=== PATIENT | female | born 1990 | race Caucasian/White ===

== ENCOUNTER 2017-10-17 05:30 | Inpatient (IN) | payer BC ==
[2017-10-17] MEDS ORDERED: Misoprostol 50 MCG (1/2 of 100 MCG) Tab VAG ONE (08:00)
[2017-10-17] MEDS ORDERED: fentaNYL 100 MCG/2 ML SDV IVPUSH PRN (08:14)
[2017-10-17] MEDS ORDERED: Ondansetron 4 MG Tab.DIS PO PRN (08:14)
[2017-10-17] MEDS ORDERED: Sodium Chloride 0.9% 10 ML Syringe FLUSH PRN (08:14)
[2017-10-17] MEDS ORDERED: Acetaminophen 325 MG Tab PO PRN (08:14)
--- NOTE | 2017-10-17 08:28 | PCM.LDHP ---
L&D History of Present Illness - General Date of Service: 10/17/17 (induction) Admit Problem/Dx: Patient Status Order with Admit Dx/Problem 10/17/17 08:14 Patient Status [ADT] Routine Admission Diagnosis/Problem Admission Diagnosis/Problem - planned Source of Information: Patient History Limitations: Reports: No Limitations - History of Present Illness Introduction:: This 27 year old G1 who is 40 4/7 weeks gestation. She presents today for induction of labor. She has been chiara since Tuesday, mild and about every 4-7 minutes. No leaking of fluid. Adequate care, healthy non smoker Labs: ABO O pos HIV neg Rubella Immune GBS pos Timing/Duration: Reports: minutes: (4-7) Location, : Reports: Abdomen Quality: Reports: Pressure Severity: Mild Improves with: Reports: None Worsens with: Reports: None - Related Data Allergies/Adverse Reactions: Allergies Allergy/AdvReac Type Severity Reaction Status Date / Time Amoxicillin Allergy Rash Uncoded 10/17/17 06:25 cephalexin Allergy Rash Uncoded 10/17/17 06:25 Home Medications: Home Meds [id number]/FA/Omega3/Dha/Fish Oil [ Gummies] 1 tab DAILY 10/17/17 [History] Past Medical History HEENT History: Reports: Allergic Rhinitis Genitourinary History: Reports: STD Other Genitourinary History: HPV 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: : 1 Para: 0 LMP (Approximate): (CHRISTELLE 10/13/17) Neurological History: Reports: Migraines, Other (See Below) Other Neuro History: Hx of migraines none in a while Oncologic (Cancer) History: Reports: Cervix 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 - Infectious Disease History Infectious Disease History: Reports: Chicken Pox - Past Surgical History Female Surgical History: Reports: None Social & Family History - Family History Family Medical History: Noncontributory - Tobacco Use Smoking Status *Q: Former Smoker Years of Tobacco use: 3 Packs/Tins Daily: 0.1 Used Tobacco, but Quit: Yes Month/Year Tobacco Last Used: 47 Second Hand Smoke Exposure: No - Caffeine Use Caffeine Use: Reports: Coffee Caffeine Use Comment: 1 cup/day - Recreational Drug Use Recreational Drug Use: No H&P Review of Systems - Review of Systems: Review Of Systems: See Below General: Reports: No Symptoms HEENT: Reports: No Symptoms Pulmonary: Reports: No Symptoms Cardiovascular: Reports: No Symptoms Gastrointestinal: Reports: No Symptoms Genitourinary: Reports: No Symptoms Musculoskeletal: Reports: No Symptoms Skin: Reports: No Symptoms Psychiatric: Reports: No Symptoms Neurological: Reports: No Symptoms Hematologic/Lymphatic: Reports: No Symptoms Immunologic: Reports: No Symptoms L&D Exam - Exam Exam: See Below - Vital Signs Vital Signs: Last Vital Signs Temp 96.7 F 10/17/17 05:43 Pulse 83 10/17/17 05:43 Resp 18 10/17/17 05:43 BP 124/72 10/17/17 05:43 Pulse Ox 97 10/17/17 05:43 Weight: 246 lb 11.2 oz - OB Specific Contraction Intensity: Irritability Movement: Active Heart Tones: Present Heart Tones per Min: 130 Heart Rate (FHR) Variability: Moderate (6-25 bmp) Presentation: Vertex Estimated Weight: 8 pounds - Lafleur Score Lafleur Score Cervix Position: Posterior Lafleur Score Consistency: Soft Lafleur Score Effacement: 51-70% Lafleur Score Dilation: 1-2 cm Lafleur Score Infant's Station: -2 Lafleur Score Total: 6 - Exam General: Alert, Oriented HEENT: PERRLA, Conjunctiva Clear, Mucosa Moist & [place], Pupils Equal Neck: Supple, Trachea Midline Lungs: Clear to Auscultation, Normal Respiratory Effort Cardiovascular: Regular Rate, Regular Rhythm GI/Abdominal Exam: Soft, No Mass, Pelvis Stable Rectal Exam: Normal Rectal Tone Genitourinary: Cervical dilitation, Enlarged uterus Back Exam: Normal Inspection, Full Range of Motion Extremities: Normal Inspection, Normal Range of Motion, Non-Tender, No Pedal Edema, Normal Capillary Refill Skin: Warm, Dry, Intact Neurological: Cranial Nerves Intact, Reflexes Equal Bilateral Psychiatric: Alert, Normal Affect, Normal Mood - Patient Data Lab Results Last 24 hrs: Laboratory Results - last 24 hr 10/17/17 10/17/17 10/17/17 Range/Units 05:43 05:43 05:45 WBC 16.6 H (4.5-11.0) K/uL RBC 4.69 (3.30-5.50) M/uL Hgb 13.7 (12.0-15.0) g/dL Hct 39.5 (36.0-48.0) % MCV 84 (80-98) fL MCH 29 (27-31) pg MCHC 35 (32-36) % Plt Count 378 (150-400) K/uL Neut % (Auto) 72 H (36-66) % Lymph % (Auto) 20 L (24-44) % [place] % (Auto) 7 H (2-6) % Eos % (Auto) 1 L (2-4) % Baso % (Auto) 0 (0-1) % Urine Color Yellow Urine Appearance Clear Urine pH 7.0 (4.5-8.0) Ur Specific [place] 1.010 (1.008-1.030) Urine Protein Negative (NEGATIVE) mg/dL Urine Glucose (UA) Normal (NEGATIVE) mg/dL Urine Ketones Negative (NEGATIVE) mg/dL Urine Occult Blood Negative (NEGATIVE) Urine Nitrite Negative (NEGATIVE) Urine Bilirubin Negative (NEGATIVE) Urine Urobilinogen Normal (NORMAL) mg/dL Ur Leukocyte Esterase Moderate (NEGATIVE) Urine RBC 0-5 (0-5) Urine WBC 10-20 H (0-5) Ur Epithelial Cells Few Amorphous Sediment Moderate Urine Bacteria Many Urine Mucus Not seen Membrane Rupture (NEGATIVE) Urine Opiates Screen Negative (NEGATIVE) Ur Oxycodone Screen Negative (NEGATIVE) Urine Methadone Screen Negative (NEGATIVE) Ur Propoxyphene Screen Negative (NEGATIVE) Ur Barbiturates Screen Negative (NEGATIVE) Ur Tricyclics Screen Negative (NEGATIVE) Ur Phencyclidine Scrn Negative (NEGATIVE) Ur Amphetamine Screen Negative (NEGATIVE) U Methamphetamines Scrn Negative (NEGATIVE) Urine MDMA Screen Negative (NEGATIVE) U Benzodiazepines Scrn Negative (NEGATIVE) U Cocaine Metab Screen Negative (NEGATIVE) U Marijuana (THC) Screen Negative (NEGATIVE) 10/17/17 Range/Units 06:25 WBC (4.5-11.0) K/uL RBC (3.30-5.50) M/uL Hgb (12.0-15.0) g/dL Hct (36.0-48.0) % MCV (80-98) fL MCH (27-31) pg MCHC (32-36) % Plt Count (150-400) K/uL Neut % (Auto) (36-66) % Lymph % (Auto) (24-44) % [place] % (Auto) (2-6) % Eos % (Auto) (2-4) % Baso % (Auto) (0-1) % Urine Color Urine Appearance Urine pH (4.5-8.0) Ur Specific [place] (1.008-1.030) Urine Protein (NEGATIVE) mg/dL Urine Glucose (UA) (NEGATIVE) mg/dL Urine Ketones (NEGATIVE) mg/dL Urine Occult Blood (NEGATIVE) Urine Nitrite (NEGATIVE) Urine Bilirubin (NEGATIVE) Urine Urobilinogen (NORMAL) mg/dL Ur Leukocyte Esterase (NEGATIVE) Urine RBC (0-5) Urine WBC (0-5) Ur Epithelial Cells Amorphous Sediment Urine Bacteria Urine Mucus Membrane Rupture Negative (NEGATIVE) Urine Opiates Screen (NEGATIVE) Ur Oxycodone Screen (NEGATIVE) Urine Methadone Screen (NEGATIVE) Ur Propoxyphene Screen (NEGATIVE) Ur Barbiturates Screen (NEGATIVE) Ur Tricyclics Screen (NEGATIVE) Ur Phencyclidine Scrn (NEGATIVE) Ur Amphetamine Screen (NEGATIVE) U Methamphetamines Scrn (NEGATIVE) Urine MDMA Screen (NEGATIVE) U Benzodiazepines Scrn (NEGATIVE) U Cocaine Metab Screen (NEGATIVE) U Marijuana (THC) Screen (NEGATIVE) Result Diagrams: 10/17/17 05:45 - Problem List (1) SNOMED Code(s): 46184729 ICD Code: Z34.90 - ENCNTR FOR SUPRVSN OF NORMAL , UNSP, UNSP TRIMESTER Status: Acute Current Visit: Yes Qualifiers: Weeks of gestation: 40 weeks Qualified Code(s): Z3A.40 - 40 weeks gestation of (2) Elective induction of labor planned SNOMED Code(s): 997472743 ICD Code: GNL4334 - Status: Acute Current Visit: Yes Problem List Initiated/Reviewed/Updated: Yes Orders Last 24hrs: Active Orders 24 hr Category Date Time Status Patient Status [ADT] Routine ADT 10/17/17 08:14 Ordered Antiembolic Devices [RC] .Routine Care 10/17/17 08:21 Ordered Communication Order [RC] ASDIRECTED Care 10/17/17 08:14 Ordered Heart Tones [RC] PER UNIT ROUTINE Care 10/17/17 08:14 Ordered May Shower [RC] ASDIRECTED Care 10/17/17 08:14 Ordered Notify Provider Vital Signs [RC] PRN Care 10/17/17 08:14 Ordered Notify Provider [RC] PRN Care 10/17/17 08:14 Ordered Up ad Gina [RC] ASDIRECTED Care 10/17/17 08:14 Ordered VTE/DVT Education [RC] Click to Edit Care 10/17/17 08:21 Ordered Vital Signs [RC] PER UNIT ROUTINE Care 10/17/17 08:14 Ordered Clear Liquid Diet [DIET] Diet 10/17/17 Lunch Ordered Acetaminophen [Tylenol] Med 10/17/17 08:14 Ordered 650 mg PO Q4H PRN Ondansetron [Zofran ODT] Med 10/17/17 08:14 Ordered 4 mg PO Q4H PRN Sodium Chloride 0.9% [Saline Flush] Med 10/17/17 08:14 Ordered 10 ml FLUSH ASDIRECTED PRN fentaNYL [Sublimaze] Med 10/17/17 08:14 Ordered 100 mcg IVPUSH Q1H PRN DVT/VTE Prophylaxis Reflex [OM.PC] Routine Oth 10/17/17 08:14 Ordered Saline Lock Insert [OM.PC] Routine Oth 10/17/17 08:14 Ordered Resuscitation Status Routine Resus Stat 10/17/17 08:14 Ordered Assessment/Plan Comment:: 10/17/17 g1 40 4/7 planned induction contractions times 2 days without major change Miso 50 mcg vaginally this morning reassess at noon, may repeat dose Plan for vaginal delivery later today
[2017-10-17] MEDS ORDERED: Misoprostol 50 MCG (1/2 of 100 MCG) Tab ONE ×2 (12:35→15:21)
--- NOTE | 2017-10-17 12:43 | PCM.PNLD ---
Labor Progress Note - VS & Meds Vital Signs: Last Vital Signs Temp 98.2 F 10/17/17 08:55 Pulse 79 10/17/17 08:55 Resp 16 10/17/17 08:55 BP 116/66 10/17/17 08:55 Pulse Ox 94 L 10/17/17 08:55 Active Medications: Current Medications Acetaminophen (Tylenol) 650 mg PO Q4H PRN PRN Reason: Pain (Mild 1-3) and fever Fentanyl (Sublimaze) 100 mcg IVPUSH Q1H PRN PRN Reason: Pain (moderate 4-6) Ondansetron HCl (Zofran Odt) 4 mg PO Q4H PRN PRN Reason: Nausea/Vomiting Sodium Chloride (Saline Flush) 10 ml FLUSH ASDIRECTED PRN PRN Reason: Keep Vein Open Discontinued Medications Misoprostol (Cytotec) 50 mcg VAG ONETIME ONE Stop: 10/17/17 08:01 Last Admin: 10/17/17 08:01 Dose: 50 mcg Misoprostol (Cytotec) Confirm Administered Dose 50 mcg .ROUTE .STK-MED ONE Stop: 10/17/17 12:36 - Uterine Contractions Uterine Monitoring Mode: External [place] Contraction Frequency (min): 3-5 Contraction Duration (sec): 50-90 Contraction Intensity: Mild Uterine Resting Tone: Soft - Monitoring Monitor Mode: External Ultrasound Heart Rate (FHR) Baseline: 130 Heart Rate (FHR) Variability: Moderate (6-25 bmp) Accelerations: Present, 15x15 Decelerations: None Strip Review: Category I - Vaginal Exam Dilation (cm): 3 Effacement (Percent): 75 Station: Ballotable Cervical Position: Midposition Sterile Vaginal Exam Performed By: Jaki Balderrama Vaginal Exam Comment: membranes stripped - Labor Progress (Free Text) Labor Progress: Progress from this morning. chiara and contractions getting stronger reassess at 1530. planning fro vaginal delivery pain management per patient request
--- NOTE | 2017-10-17 15:28 | PCM.PNLD ---
Labor Progress Note - VS & Meds Vital Signs: Last Vital Signs Temp 98.2 F 10/17/17 08:55 Pulse 79 10/17/17 08:55 Resp 16 10/17/17 08:55 BP 116/66 10/17/17 08:55 Pulse Ox 94 L 10/17/17 08:55 Active Medications: Current Medications Acetaminophen (Tylenol) 650 mg PO Q4H PRN PRN Reason: Pain (Mild 1-3) and fever Fentanyl (Sublimaze) 100 mcg IVPUSH Q1H PRN PRN Reason: Pain (moderate 4-6) Ondansetron HCl (Zofran Odt) 4 mg PO Q4H PRN PRN Reason: Nausea/Vomiting Sodium Chloride (Saline Flush) 10 ml FLUSH ASDIRECTED PRN PRN Reason: Keep Vein Open Discontinued Medications Misoprostol (Cytotec) 50 mcg VAG ONETIME ONE Stop: 10/17/17 08:01 Last Admin: 10/17/17 08:01 Dose: 50 mcg Misoprostol (Cytotec) Confirm Administered Dose 50 mcg .ROUTE .STK-MED ONE Stop: 10/17/17 12:36 Last Admin: 10/17/17 13:57 Dose: Not Given Misoprostol (Cytotec) Confirm Administered Dose 50 mcg .ROUTE .STK-MED ONE Stop: 10/17/17 15:22 - Uterine Contractions Uterine Monitoring Mode: External [place] Contraction Frequency (min): 2-5 Contraction Duration (sec): 50-110 Contraction Intensity: Mild to Moderate Uterine Resting Tone: Soft - Monitoring Monitor Mode: External Ultrasound Heart Rate (FHR) Baseline: 130 Heart Rate (FHR) Variability: Moderate (6-25 bmp) Accelerations: Present, 15x15 Decelerations: None Strip Review: Category I - Vaginal Exam Dilation (cm): 3 Effacement (Percent): 75 Station: Ballotable Cervical Position: Midposition Sterile Vaginal Exam Performed By: Jaki Balderrama Vaginal Exam Comment: bloody show - Labor Progress (Free Text) Labor Progress: 10/17/17 Progress from this morning, in latent labor contractions have spaced out and inserted Miso 25 mcg vaginally Planning for vaginal delivery
[2017-10-17] MEDS ORDERED: Lactated Ringers 1,000 ML IV ONE ×2 (17:18)
--- NOTE | 2017-10-17 17:18 | PCM.PNLD ---
Labor Progress Note - VS & Meds Vital Signs: Last Vital Signs Temp 97.6 F 10/17/17 15:10 Pulse 83 10/17/17 15:10 Resp 16 10/17/17 15:10 BP 126/83 10/17/17 15:10 Pulse Ox 92 L 10/17/17 15:10 Active Medications: Current Medications Acetaminophen (Tylenol) 650 mg PO Q4H PRN PRN Reason: Pain (Mild 1-3) and fever Fentanyl (Sublimaze) 100 mcg IVPUSH Q1H PRN PRN Reason: Pain (moderate 4-6) Ondansetron HCl (Zofran Odt) 4 mg PO Q4H PRN PRN Reason: Nausea/Vomiting Sodium Chloride (Saline Flush) 10 ml FLUSH ASDIRECTED PRN PRN Reason: Keep Vein Open Discontinued Medications Misoprostol (Cytotec) 50 mcg VAG ONETIME ONE Stop: 10/17/17 08:01 Last Admin: 10/17/17 08:01 Dose: 50 mcg Misoprostol (Cytotec) Confirm Administered Dose 50 mcg .ROUTE .STK-MED ONE Stop: 10/17/17 12:36 Last Admin: 10/17/17 13:57 Dose: Not Given Misoprostol (Cytotec) Confirm Administered Dose 50 mcg .ROUTE .STK-MED ONE Stop: 10/17/17 15:22 Last Admin: 10/17/17 15:34 Dose: 25 mcg - Uterine Contractions Uterine Monitoring Mode: External [place] Contraction Frequency (min): 2-3 Contraction Duration (sec): 50-90 Contraction Intensity: Moderate Uterine Resting Tone: Soft - Monitoring Monitor Mode: External Ultrasound Heart Rate (FHR) Baseline: 130 Heart Rate (FHR) Variability: Moderate (6-25 bmp) Accelerations: Present, 15x15 Decelerations: None Strip Review: Category I - Vaginal Exam Dilation (cm): 4 Effacement (Percent): 80 Station: 0 Cervical Position: Midposition Sterile Vaginal Exam Performed By: Jaki Balderrama Vaginal Exam Comment: AROM Meconium - Labor Progress (Free Text) Labor Progress: Progress, contractions painful AROM, Mec Plan epidural and then pitocin to augment contractions. Planning for vaginal delivery later this evening.
[2017-10-17] MEDS ORDERED: ePHEDrine 50 MG/ML SDV IVPUSH ONE (17:30)
[2017-10-17] MEDS ORDERED: Lactated Ringers 1,000 ML IV SCH (18:20)
[2017-10-17] MEDS ORDERED: Ropivacaine HCl/PF 200 ML ONE (18:53)
[2017-10-17] MEDS ORDERED: Naloxone 0.4 MG/ML SDV IVPUSH PRN (19:29)
[2017-10-17] MEDS ORDERED: Ropivacaine 100 ML EPIDUR SCH (19:29)
[2017-10-17] MEDS ORDERED: ePHEDrine 50 MG/ML SDV IV PRN (19:29)
--- NOTE | 2017-10-17 22:13 | ANES ---
DATE OF SERVICE: 10/17/2017 Labor Epidural Note I was called by the OB Department for a 27-year-old female patient, 1st baby, wanting labor epidural for labor pains. I was at the bedside and was able to assess the patient, reviewed history and physical with the patient, and reviewed allergies. Platelet count was over 300. The patient had no abnormal bleeding issues. Has never had a labor epidural before. Discussed the risks and benefits related to the labor epidural to the patient and . The patient wishes to proceed with the procedure today. She was then sat at the edge of the bed where I prepped her lumbar region with Betadine x3. Sterile drape was then placed. A 17-gauge Touhy needle was then inserted at approximately the L4-5 region. Loss of resistance was achieved. Negative CSF, negative paresthesia, negative heme were noted. Catheter was placed. The Touhy needle was then withdrawn. Catheter was pulled back to approximately 14 cm and secured. 3 mL test dose was done, test dose was negative after 5 minutes. At approximately 1832 hours, I bolused the patient with 12 mL of 0.2% ropivacaine and started her on a drip of ropivacaine at 12 mL an hour. The patient was having some relief when I left the bedside. Vital signs were stable throughout the procedure and was resting fairly comfortably when I left. Please refer to the nurse's notes for vital signs during the labor epidural procedure and post procedure. We will continue to monitor the patient's vital signs closely. Stanford Alejo CRNA /[id number]
[2017-10-17] MEDS ORDERED: Lidocaine 1% 50 ML MDV ONE (23:25)
[2017-10-18] MEDS ORDERED: Misoprostol 200 MCG Tab ONE (01:26)
[2017-10-18] MEDS ORDERED: Methylergonovine 0.2 MG/1 ML Amp IM STA (01:26)
[2017-10-18] MEDS ORDERED: Carboprost Tromethamine 250 MCG/1 ML Amp ONE (01:26)
[2017-10-18] MEDS ORDERED: Methylergonovine 0.2 MG/1 ML Amp ONE (01:26)
[2017-10-18] MEDS ORDERED: Lanolin 100% Cream 40 GM Tube TOP PRN (02:09)
[2017-10-18] MEDS ORDERED: Acetaminophen/Codeine 300-30 MG Tab PO PRN (02:09)
[2017-10-18] MEDS ORDERED: Witch Hazel Medicated Pads 100/Jar TOP PRN (02:09)
[2017-10-18] MEDS ORDERED: Methylergonovine 0.2 MG Tab PO PRN (02:09)
[2017-10-18] MEDS ORDERED: Benzocaine 20% Top Spray 56 GM Bottle TOP PRN (02:09)
[2017-10-18] MEDS ORDERED: Acetaminophen 325 MG Tab, 50 Tab Bulk Bottle PO PRN ×2 (02:13→10:44)
[2017-10-18] MEDS ORDERED: Ibuprofen 200 MG Tab, 24 Tab Bulk Bottle PO PRN (02:13)
--- NOTE | 2017-10-18 02:32 | PCM.DEL ---
L & D Note - General Info Date of Service: 10/18/17 (delivery) Mother's Due Date: 10/13/17 - Delivery Note Labor: Augmented by ARM, Augmented by Oxytocin Cervical Ripening Method: Misoprostil Delivery Outcome: Livebirth Delivery Method: Spontaneous Vaginal Delivery-Single Delivery Mode: Vacuum Extraction Presentation: Left Occiput Anterior ([place]) Nuchal Cord: None Anesthesia Type: None, Epidural Anesthetic: Lidocaine (Xylocaine) 1% Plain Amniotic Fluid Description: Meconium Stained Laceration: 2nd Degree, Vaginal Suture type: Vicryl Suture size: 3-0 Placenta: Intact, Expressed, Meconium Stained Cord: 3 Vessels Estimated Blood Loss: 400 Resuscitation Needed: No [place]: Stimulated, Warmed, [place] Used Provider: Jaki Balderrama Score 1 min: 9 Score 5 min: 10 Post Delivery Events: Shoulder Dystocia (head delivered and classic turtle sign , Mcboerts and suprapubic pressure released shoulder) Second Stage Interventions: Reports: Second Nurse Reviewed Heart Tones, Encouragement Given, Pushing Effectively, Pushing, Squat Bar Pulling on Sheet Delivery Comments (Free Text/Narrative):: This G2 now P1 27 year old at 40 4/7 weeks delivered at 0118 via in [place] with vacuum assist for maternal exhaustion. One pull no pop offs brought head to perineum and she finished pushing him out. Shoulder dystocia with classic turtle sign. Head of head down, nurse on bed with [place] and supra pubic pressure and anterior shoulder was released. The male was placed on mother abdomen where he cried spontaneously. Apgars 9,10. Three vessel cord, Weight 8-11. The placenta was expressed spontaneously intact and was meconium stained. There was a second degree vaginal and perineal tear which was repaired with locked vaginal sutures and interrupted perineal sutures. no lacerations to the cervix, or rectum were found. Was bleeding as I was repairing and a large clot was removed after repair work was finished. EBL 400cc Mother and baby to post and nursery in stable condition. first stage 3804-9975 Second stage 9217-9199 Third stage 8803-9684 Induction Criteria - Lafleur Score Lafleur Score Dilation: 1-2 cm Lafleur Score Effacement: 40-50% Lafleur Score Infant's Station: -1 ,0 Lafleur Score Consistency: Soft Lafleur Score Cervix Position: Posterior Lafleur Score Total: 6 Lafleur Score Presenting Part: Reports: Cephalic - Induction Gestational Age >/= 39 wks: Yes Estimated Pelvis: Reports: Adequate Reassuring Monitoring Strip: Yes Absence of Tachy Systole: Yes - Augmentation Estimated Pelvis: Reports: Adequate Weight Estimated:: Reports: AGA Reassuring Monitoring Strip: Yes Absence of Tachy Systole: Yes Vacuum Extractor Progress Note - Alternative Labor Strategies Considered Alternative Labor Strategies Considered:: Reports: Yes Strategies Considered:: Reports: Contraction Intensity Adequate, Empty Bladder Indications Considered:: Reports: Yes Indications:: Reports: Prolonged 2nd Stage, Shortening of 2nd Stage for Maternal Benefit Time Out:: Reports: Yes - Patient Prepared Patient Prepared:: Reports: Yes Informed Consent:: Reports: Verbal Risks: Reports: Yes Risks Include:: Reports: Laceration, Shoulder Dystocia, Maternal Injury Anesthesia/Analgesia Adequate:: Reports: Yes - Probability of Success High Probability of Success:: Reports: Yes Weight Estimated:: Reports: AGA Patient Diabetic:: Reports: No Pelvis Adequate:: Reports: Yes Asynclitic:: Reports: No - Application Time Maximum Application Time & Number of Pop-Offs Predetermined:: Reports: Yes Number of Times Cup Disengaged:: 0 Type of Vacuum Used:: Reports: Cup: Mushroom type Vacuum Extraction: Successful - Exit Strategy Exit strategy available:: Reports: Yes and resuscitation teams readily available:: Reports: Yes - General Info Date of Service: 10/18/17 Admission Dx/Problem (Free Text): Patient Status Order with Admit Dx/Problem 10/17/17 08:14 Patient Status [ADT] Routine Admission Diagnosis/Problem Admission Diagnosis/Problem - planned Functional Status: Reports: Pain Controlled - Review of Systems General: Reports: No Symptoms HEENT: Reports: No Symptoms Pulmonary: Reports: No Symptoms Cardiovascular: Reports: No Symptoms Gastrointestinal: Reports: No Symptoms Genitourinary: Reports: No Symptoms Musculoskeletal: Reports: No Symptoms Skin: Reports: No Symptoms Neurological: Reports: No Symptoms Psychiatric: Reports: No Symptoms - Patient Data Vitals - Most Recent: Last Vital Signs Temp 98.7 F 10/18/17 02:00 Pulse 80 10/18/17 02:00 Resp 18 10/18/17 02:00 BP 115/65 10/18/17 02:00 Pulse Ox 98 10/18/17 02:00 Weight - Most Recent: 246 lb 11.2 oz I&O - Last 24 Hours: Intake & Output 10/17/17 10/17/17 10/18/17 14:59 22:59 06:59 Intake Total 2500 1100 Output Total 900 Balance 2500 200 Lab Results Last 24 Hours: Laboratory Results - last 24 hr 10/17/17 10/17/17 10/17/17 Range/Units 05:43 05:43 05:45 WBC 16.6 H (4.5-11.0) K/uL RBC 4.69 (3.30-5.50) M/uL Hgb 13.7 (12.0-15.0) g/dL Hct 39.5 (36.0-48.0) % MCV 84 (80-98) fL MCH 29 (27-31) pg MCHC 35 (32-36) % Plt Count 378 (150-400) K/uL Neut % (Auto) 72 H (36-66) % Lymph % (Auto) 20 L (24-44) % [place] % (Auto) 7 H (2-6) % Eos % (Auto) 1 L (2-4) % Baso % (Auto) 0 (0-1) % Urine Color Yellow Urine Appearance Clear Urine pH 7.0 (4.5-8.0) Ur Specific [place] 1.010 (1.008-1.030) Urine Protein Negative (NEGATIVE) mg/dL Urine Glucose (UA) Normal (NEGATIVE) mg/dL Urine Ketones Negative (NEGATIVE) mg/dL Urine Occult Blood Negative (NEGATIVE) Urine Nitrite Negative (NEGATIVE) Urine Bilirubin Negative (NEGATIVE) Urine Urobilinogen Normal (NORMAL) mg/dL Ur Leukocyte Esterase Moderate (NEGATIVE) Urine RBC 0-5 (0-5) Urine WBC 10-20 H (0-5) Ur Epithelial Cells Few Amorphous Sediment Moderate Urine Bacteria Many Urine Mucus Not seen Membrane Rupture (NEGATIVE) Urine Opiates Screen Negative (NEGATIVE) Ur Oxycodone Screen Negative (NEGATIVE) Urine Methadone Screen Negative (NEGATIVE) Ur Propoxyphene Screen Negative (NEGATIVE) Ur Barbiturates Screen Negative (NEGATIVE) Ur Tricyclics Screen Negative (NEGATIVE) Ur Phencyclidine Scrn Negative (NEGATIVE) Ur Amphetamine Screen Negative (NEGATIVE) U Methamphetamines Scrn Negative (NEGATIVE) Urine MDMA Screen Negative (NEGATIVE) U Benzodiazepines Scrn Negative (NEGATIVE) U Cocaine Metab Screen Negative (NEGATIVE) U Marijuana (THC) Screen Negative (NEGATIVE) 10/17/17 Range/Units 06:25 WBC (4.5-11.0) K/uL RBC (3.30-5.50) M/uL Hgb (12.0-15.0) g/dL Hct (36.0-48.0) % MCV (80-98) fL MCH (27-31) pg MCHC (32-36) % Plt Count (150-400) K/uL Neut % (Auto) (36-66) % Lymph % (Auto) (24-44) % [place] % (Auto) (2-6) % Eos % (Auto) (2-4) % Baso % (Auto) (0-1) % Urine Color Urine Appearance Urine pH (4.5-8.0) Ur Specific [place] (1.008-1.030) Urine Protein (NEGATIVE) mg/dL Urine Glucose (UA) (NEGATIVE) mg/dL Urine Ketones (NEGATIVE) mg/dL Urine Occult Blood (NEGATIVE) Urine Nitrite (NEGATIVE) Urine Bilirubin (NEGATIVE) Urine Urobilinogen (NORMAL) mg/dL Ur Leukocyte Esterase (NEGATIVE) Urine RBC (0-5) Urine WBC (0-5) Ur Epithelial Cells Amorphous Sediment Urine Bacteria Urine Mucus Membrane Rupture Negative (NEGATIVE) Urine Opiates Screen (NEGATIVE) Ur Oxycodone Screen (NEGATIVE) Urine Methadone Screen (NEGATIVE) Ur Propoxyphene Screen (NEGATIVE) Ur Barbiturates Screen (NEGATIVE) Ur Tricyclics Screen (NEGATIVE) Ur Phencyclidine Scrn (NEGATIVE) Ur Amphetamine Screen (NEGATIVE) U Methamphetamines Scrn (NEGATIVE) Urine MDMA Screen (NEGATIVE) U Benzodiazepines Scrn (NEGATIVE) U Cocaine Metab Screen (NEGATIVE) U Marijuana (THC) Screen (NEGATIVE) Med Orders - Current: Current Medications Acetaminophen (Tylenol) 650 mg PO Q4H PRN PRN Reason: Pain (Mild 1-3) and fever Acetaminophen (Tylenol Bulk Bottle) 325 mg PO Q4H PRN PRN Reason: Pain Acetaminophen/Codeine Phosphate (Tylenol With Codeine No.3 300mg/30mg) 1 tab PO Q4H PRN PRN Reason: Pain (moderate 4-6) Benzocaine (Agja-X-Bnedflo 20% [place]) 0 gm TOP Q4H PRN PRN Reason: Perineal Comfort Measure Docusate Sodium (Colace) 100 mg PO BID MEENU Emollient Ointment (Lansinoh Hpa) 1 gm TOP ASDIRECTED PRN PRN Reason: Sore Nipples Ephedrine Sulfate (Ephedrine Sulfate) 5 - 10 mg IV ASDIRECTED PRN PRN Reason: Systolic BP less than 100 Fentanyl (Sublimaze) 100 mcg IVPUSH Q1H PRN PRN Reason: Pain (moderate 4-6) Oxytocin/Sodium Chloride (Pitocin In Ns 20 Units/1,000 Ml) 20 unit in 1,000 mls @ 6 mls/hr IV TITRATE MEENU; 2 MUNITS/MIN PRN Reason: Protocol Last Titration: 10/18/17 00:08 Dose: 5 munits/min, 15 mls/hr Ropivacaine (Naropin 0.2%) 100 mls @ 0 mls/hr EPIDUR ASDIRECTED MEENU; Titrate PRN Reason: Protocol Last Admin: 10/17/17 18:30 Dose: 12 ml/hr, 12 mls/hr Lactated Ringer's (Ringers, Lactated) 1,000 mls @ 100 mls/hr IV ASDIRECTED MEENU Last Admin: 10/17/17 18:20 Dose: 100 mls/hr Ibuprofen (Motrin Bulk Bottle) 600 mg PO Q6H PRN PRN Reason: Pain Methylergonovine Maleate (Methergine) 0.2 mg PO ONETIME PRN PRN Reason: excessive vaginal bleeding Naloxone HCl (Narcan) 0.1 mg IVPUSH Q5M PRN PRN Reason: IF RESP RATE LESS THAN 6 Ondansetron HCl (Zofran Odt) 4 mg PO Q4H PRN PRN Reason: Nausea/Vomiting Sodium Chloride (Saline Flush) 10 ml FLUSH ASDIRECTED PRN PRN Reason: Keep Vein Open Witch Arpita (Tucks) 1 pad TOP ASDIRECTED PRN PRN Reason: Hemorrhoids Discontinued Medications Carboprost Tromethamine (Hemabate Ds) Confirm Administered Dose 250 mcg .ROUTE .STK-MED ONE Stop: 10/18/17 01:27 Ephedrine Sulfate (Ephedrine Sulfate) 5 mg IVPUSH ONETIME ONE Stop: 10/17/17 17:31 Last Admin: 10/17/17 19:37 Dose: Not Given Lactated Ringer's (Ringers, Lactated) 1,000 mls @ 999 mls/hr IV .BOLUS ONE Stop: 10/17/17 18:18 Last Admin: 10/17/17 17:20 Dose: 999 mls/hr Lactated Ringer's (Ringers, Lactated) 1,000 mls @ 999 mls/hr IV .BOLUS ONE Stop: 10/17/17 18:18 Last Admin: 10/17/17 19:30 Dose: Not Given Ropivacaine (Naropin 0.2%) Confirm Administered Dose 200 mls @ as directed .ROUTE .STK-MED ONE Stop: 10/17/17 18:54 Lidocaine HCl (Xylocaine 1%) Confirm Administered Dose 50 ml .ROUTE .STK-MED ONE Stop: 10/17/17 23:26 Methylergonovine Maleate (Methergine) Confirm Administered Dose 0.2 mg .ROUTE .STK-MED ONE Stop: 10/18/17 01:27 Misoprostol (Cytotec) 50 mcg VAG ONETIME ONE Stop: 10/17/17 08:01 Last Admin: 10/17/17 08:01 Dose: 50 mcg Misoprostol (Cytotec) Confirm Administered Dose 50 mcg .ROUTE .STK-MED ONE Stop: 10/17/17 12:36 Last Admin: 10/17/17 13:57 Dose: Not Given Misoprostol (Cytotec) Confirm Administered Dose 50 mcg .ROUTE .STK-MED ONE Stop: 10/17/17 15:22 Last Admin: 10/17/17 15:34 Dose: 25 mcg Misoprostol (Cytotec) Confirm Administered Dose 800 mcg .ROUTE .STK-MED ONE Stop: 10/18/17 01:27 - Exam General: Alert, Oriented HEENT: Pupils Equal, Pupils Reactive, EOMI Neck: Supple Lungs: Clear to Auscultation, Normal Respiratory Effort Cardiovascular: Regular Rate, Regular Rhythm GI/Abdominal Exam: Normal Bowel Sounds, Soft, Non-Tender, No Organomegaly, No Distention (Female) Exam: Cervical Dilatation, Enlarged Uterus, Vaginal Bleeding, Vaginal Tears Back Exam: Normal Inspection Extremities: Normal Inspection, Pedal Edema Skin: Warm, Dry, Intact Neurological: No New Focal Deficit Psy/Mental Status: Alert, Normal Affect, Normal Mood - Problem List & Annotations (1) SNOMED Code(s): 09036595 Code(s): Z34.90 - ENCNTR FOR SUPRVSN OF NORMAL , UNSP, UNSP TRIMESTER Status: Acute Current Visit: Yes Qualifiers: Weeks of gestation: 40 weeks Qualified Code(s): Z3A.40 - 40 weeks gestation of (2) Elective induction of labor planned SNOMED Code(s): 662049394 Code(s): WHI5821 - Status: Acute Current Visit: Yes (3) Vacuum extractor delivery, delivered SNOMED Code(s): 503754301 Code(s): O66.5 - ATTEMPTED APPLICATION OF VACUUM EXTRACTOR AND FORCEPS Status: Acute Current Visit: Yes (4) Shoulder dystocia during labor and delivery SNOMED Code(s): 77994533 Code(s): O66.0 - OBSTRUCTED LABOR DUE TO SHOULDER DYSTOCIA Status: Acute Current Visit: Yes (5) Vaginal tear resulting from childbirth SNOMED Code(s): 961607251 Code(s): O71.4 - OBSTETRIC HIGH VAGINAL LACERATION ALONE Status: Acute Current Visit: Yes (6) Vaginal delivery SNOMED Code(s): 538519950 Code(s): O80 - ENCOUNTER FOR FULL-TERM UNCOMPLICATED DELIVERY Status: Acute Current Visit: Yes (7) membranes, rupture SNOMED Code(s): 37345162 Code(s): ICB0009 - Status: Acute Current Visit: Yes - Problem List Review Problem List Initiated/Reviewed/Updated: Yes - My Orders Last 24 Hours: My Active Orders 10/17/17 08:14 Communication Order [RC] ASDIRECTED Heart Tones [RC] PER UNIT ROUTINE May Shower [RC] ASDIRECTED Notify Provider Vital Signs [RC] PRN Notify Provider [RC] PRN Up ad Gina [RC] ASDIRECTED Vital Signs [RC] PER UNIT ROUTINE Acetaminophen [Tylenol] 650 mg PO Q4H PRN Ondansetron [Zofran ODT] 4 mg PO Q4H PRN Sodium Chloride 0.9% [Saline Flush] 10 ml FLUSH ASDIRECTED PRN fentaNYL [Sublimaze] 100 mcg IVPUSH Q1H PRN DVT/VTE Prophylaxis Reflex [OM.PC] Routine Saline Lock Insert [OM.PC] Routine Resuscitation Status Routine 10/17/17 08:21 Antiembolic Devices [RC] .Routine VTE/DVT Education [RC] Click to Edit 10/17/17 17:18 Local Anesthetic Infusion Pump [RC] ASDIRECTED Local Anesthetic Infusion Pump [RC] ASDIRECTED PCEA Epidural [RC] ASDIRECTED PCEA Epidural [RC] ASDIRECTED Epidural Catheter Management [OM.PC] Urgent 10/17/17 18:20 Lactated Ringers [Ringers, Lactated] 1,000 ml IV ASDIRECTED 10/17/17 19:29 Naloxone [Narcan] 0.1 mg IVPUSH Q5M PRN Ropivacaine [Naropin 0.2%] 100 ml EPIDUR ASDIRECTED ePHEDrine [ePHEDrine Sulfate] 5 - 10 mg IV ASDIRECTED PRN 10/17/17 19:30 Oxytocin/Normal Saline [Pitocin in NS 20 Units/1,000 ML] 20 unit in 1,000 ml IV TITRATE 10/17/17 20:00 Urinary Catheter Insertion [Insert Urinary Catheter] [OM.PC] Q24H 10/17/17 Lunch Clear Liquid Diet [DIET] 10/18/17 02:09 Patient Status [ADT] Routine Urinary Catheter Removal [RC] Per Unit Routine Vital Signs [RC] PFP Acetaminophen/Codeine [Tylenol with Codeine No.3 300MG/30MG] 1 tab PO Q4H PRN Benzocaine [Crxg-Z-Bmvrjdj 20% [place]] See Dose Instructions TOP Q4H PRN Lanolin [Lansinoh HPA] 1 gm TOP ASDIRECTED PRN Methylergonovine [Methergine] 0.2 mg PO ONETIME PRN Witch Arpita [Tucks] 1 pad TOP ASDIRECTED PRN Assess Lochia [WOMSER] Per Unit Routine Assess Uterine Involution [WOMSER] Per Unit Routine 10/18/17 02:10 Ice Therapy [OM.PC] Per Unit Routine Perineal Care [OM.PC] Per Unit Routine Peripheral IV Discontinue [OM.PC] Routine Sitz Bath [OM.PC] Per Unit Routine 10/18/17 02:13 Acetaminophen [Tylenol Bulk Bottle] 325 mg PO Q4H PRN Ibuprofen [Motrin Bulk Bottle] 600 mg PO Q6H PRN 10/18/17 05:11 CBC WITH AUTO DIFF [HEME] AM 10/18/17 09:00 Docusate Sodium [Colace] 100 mg PO BID 10/18/17 Breakfast Regular Diet [DIET] - Assessment Assessment:: 10/18/17 27 yr ols G2now P1 40 4/7 weeks with vacuum assist and shoulder dystoica, successful delivery vaginal and perineal tear repaired - Plan Plan:: 10/17/17 g1 40 4/7 planned induction contractions times 2 days without major change Miso 50 mcg vaginally this morning reassess at noon, may repeat dose Plan for vaginal delivery later today 10/18/17 routine post cares Ice to bottom times 24 hours sitz bath later today HGB in am support 24-48 hour stay
[2017-10-18] MEDS: Docusate Sodium 100 MG Cap PO SCH ×2 (10:17→21:52)
[2017-10-19] MEDS: Docusate Sodium 100 MG Cap PO SCH ×2 (09:02→23:27)
--- NOTE | 2017-10-19 18:25 | PCM.PNPP ---
- General Info Date of Service: 10/19/17 (PPD 1) Admission Dx/Problem (Free Text): Patient Status Order with Admit Dx/Problem 10/17/17 08:14 Patient Status [ADT] Routine Admission Diagnosis/Problem Admission Diagnosis/Problem - planned Functional Status: Reports: Pain Controlled - Review of Systems General: Reports: No Symptoms HEENT: Reports: No Symptoms Pulmonary: Reports: No Symptoms Cardiovascular: Reports: No Symptoms Gastrointestinal: Reports: No Symptoms Genitourinary: Reports: No Symptoms Musculoskeletal: Reports: No Symptoms Skin: Reports: No Symptoms Neurological: Reports: No Symptoms Psychiatric: Reports: No Symptoms - Patient Data Vital Signs - Most Recent: Last Vital Signs Temp 97.6 F 10/19/17 14:26 Pulse 71 10/19/17 14:26 Resp 16 10/19/17 14:26 BP 119/63 10/19/17 14:26 Pulse Ox 99 10/19/17 14:26 Weight - Most Recent: 246 lb Med Orders - Current: Current Medications Acetaminophen (Tylenol Bulk Bottle) 325 - 650 mg PO Q4H PRN PRN Reason: Pain Acetaminophen/Codeine Phosphate (Tylenol With Codeine No.3 300mg/30mg) 1 tab PO Q4H PRN PRN Reason: Pain (moderate 4-6) Benzocaine (Agve-P-Xcrzsha 20% [place]) 0 gm TOP Q4H PRN PRN Reason: Perineal Comfort Measure Docusate Sodium (Colace) 100 mg PO BID [facility] Last Admin: 10/19/17 09:02 Dose: Not Given Emollient Ointment (Lansinoh Hpa) 1 gm TOP ASDIRECTED PRN PRN Reason: Sore Nipples Lactated Ringer's (Ringers, Lactated) 1,000 mls @ 100 mls/hr IV ASDIRECTED [facility] Last Admin: 10/17/17 18:20 Dose: 100 mls/hr Ibuprofen (Motrin Bulk Bottle) 600 mg PO Q6H PRN PRN Reason: Pain Methylergonovine Maleate (Methergine) 0.2 mg PO ONETIME PRN PRN Reason: excessive vaginal bleeding Naloxone HCl (Narcan) 0.1 mg IVPUSH Q5M PRN PRN Reason: IF RESP RATE LESS THAN 6 Ondansetron HCl (Zofran Odt) 4 mg PO Q4H PRN PRN Reason: Nausea/Vomiting Sodium Chloride (Saline Flush) 10 ml FLUSH ASDIRECTED PRN PRN Reason: Keep Vein Open Witch Arpita (Tucks) 1 pad TOP ASDIRECTED PRN PRN Reason: Hemorrhoids Discontinued Medications Acetaminophen (Tylenol) 650 mg PO Q4H PRN PRN Reason: Pain (Mild 1-3) and fever Acetaminophen (Tylenol Bulk Bottle) 325 - 650 mg PO Q4H PRN PRN Reason: Pain Carboprost Tromethamine (Hemabate Ds) Confirm Administered Dose 250 mcg .ROUTE .STK-MED ONE Stop: 10/18/17 01:27 Last Admin: 10/18/17 21:49 Dose: Not Given Ephedrine Sulfate (Ephedrine Sulfate) 5 mg IVPUSH ONETIME ONE Stop: 10/17/17 17:31 Last Admin: 10/17/17 19:37 Dose: Not Given Ephedrine Sulfate (Ephedrine Sulfate) 5 - 10 mg IV ASDIRECTED PRN PRN Reason: Systolic BP less than 100 Fentanyl (Sublimaze) 100 mcg IVPUSH Q1H PRN PRN Reason: Pain (moderate 4-6) Lactated Ringer's (Ringers, Lactated) 1,000 mls @ 999 mls/hr IV .BOLUS ONE Stop: 10/17/17 18:18 Last Admin: 10/17/17 17:20 Dose: 999 mls/hr Lactated Ringer's (Ringers, Lactated) 1,000 mls @ 999 mls/hr IV .BOLUS ONE Stop: 10/17/17 18:18 Last Admin: 10/17/17 19:30 Dose: Not Given Ropivacaine (Naropin 0.2%) Confirm Administered Dose 200 mls @ as directed .ROUTE .STK-MED ONE Stop: 10/17/17 18:54 Oxytocin/Sodium Chloride (Pitocin In Ns 20 Units/1,000 Ml) 20 unit in 1,000 mls @ 6 mls/hr IV TITRATE MEENU; Protocol Last Titration: 10/18/17 00:08 Dose: 5 munits/min, 15 mls/hr Ropivacaine (Naropin 0.2%) 100 mls @ 0 mls/hr EPIDUR ASDIRECTED MEENU; Protocol Last Admin: 10/17/17 18:30 Dose: 12 ml/hr, 12 mls/hr Lidocaine HCl (Xylocaine 1%) Confirm Administered Dose 50 ml .ROUTE .STK-MED ONE Stop: 10/17/17 23:26 Last Admin: 10/18/17 21:49 Dose: Not Given Methylergonovine Maleate (Methergine) Confirm Administered Dose 0.2 mg .ROUTE .STK-MED ONE Stop: 10/18/17 01:27 Last Admin: 10/18/17 21:49 Dose: Not Given Misoprostol (Cytotec) 50 mcg VAG ONETIME ONE Stop: 10/17/17 08:01 Last Admin: 10/17/17 08:01 Dose: 50 mcg Misoprostol (Cytotec) Confirm Administered Dose 50 mcg .ROUTE .STK-MED ONE Stop: 10/17/17 12:36 Last Admin: 10/17/17 13:57 Dose: Not Given Misoprostol (Cytotec) Confirm Administered Dose 50 mcg .ROUTE .STK-MED ONE Stop: 10/17/17 15:22 Last Admin: 10/17/17 15:34 Dose: 25 mcg Misoprostol (Cytotec) Confirm Administered Dose 800 mcg .ROUTE .STK-MED ONE Stop: 10/18/17 01:27 Last Admin: 10/18/17 21:49 Dose: Not Given - Interaction Infant Disposition, : in Room with Family Infant Interaction: Holding Feeding: Attempted ; Nursed Fair/Poor Support Person: - Recovery Exam Fundal Tone: Firm Fundal Level: At Umbilicus Fundal Placement: Left Lochia Amount: Small Lochia Color: [place]/Red Perineum Description: Intact, Minimal Bruising/Swelling Episiotomy/Laceration: Approximated Bladder Status: Voiding Urinary Elimination: Voided Other Urinary Elimination, : due to void. - Exam General: Alert, Oriented HEENT: Pupils Equal Neck: Supple Lungs: Clear to Auscultation, Normal Respiratory Effort Cardiovascular: Regular Rate, Regular Rhythm GI/Abdominal Exam: Normal Bowel Sounds, Soft, Non-Tender, No Organomegaly, No Distention, No Abnormal Bruit, No Mass, Pelvis Stable Extremities: Normal Inspection, Normal Range of Motion, Non-Tender, No Pedal Edema, Normal Capillary Refill Skin: Warm, Dry, Intact Wound/Incisions: Healing Well Neurological: No New Focal Deficit Psy/Mental Status: Alert, Normal Affect, Normal Mood - Problem List & Annotations (1) SNOMED Code(s): 39034164 Code(s): Z34.90 - ENCNTR FOR SUPRVSN OF NORMAL , UNSP, UNSP TRIMESTER Status: Acute Current Visit: Yes Qualifiers: Weeks of gestation: 40 weeks Qualified Code(s): Z3A.40 - 40 weeks gestation of (2) Elective induction of labor planned SNOMED Code(s): 740968379 Code(s): ADQ8909 - Status: Acute Current Visit: Yes (3) Vacuum extractor delivery, delivered SNOMED Code(s): 869011873 Code(s): O66.5 - ATTEMPTED APPLICATION OF VACUUM EXTRACTOR AND FORCEPS Status: Acute Current Visit: Yes (4) Shoulder dystocia during labor and delivery SNOMED Code(s): 99848727 Code(s): O66.0 - OBSTRUCTED LABOR DUE TO SHOULDER DYSTOCIA Status: Acute Current Visit: Yes (5) Vaginal tear resulting from childbirth SNOMED Code(s): 658925344 Code(s): O71.4 - OBSTETRIC HIGH VAGINAL LACERATION ALONE Status: Acute Current Visit: Yes (6) Vaginal delivery SNOMED Code(s): 332207392 Code(s): O80 - ENCOUNTER FOR FULL-TERM UNCOMPLICATED DELIVERY Status: Acute Current Visit: Yes (7) membranes, rupture SNOMED Code(s): 48677976 Code(s): NVQ4359 - Status: Acute Current Visit: Yes - Problem List Review Problem List Initiated/Reviewed/Updated: Yes - Assessment Assessment:: 10/18/17 27 yr ols G2now P1 40 4/7 weeks with vacuum assist and shoulder dystoica, successful delivery vaginal and perineal tear repaired 10/19/17 Doing well Digital exam no hematomas, repair intact and without pain bleeding light breast, soft no milk yet Mood happy HGB 12.7 - Plan Plan:: 10/17/17 g1 40 4/7 planned induction contractions times 2 days without major change Miso 50 mcg vaginally this morning reassess at noon, may repeat dose Plan for vaginal delivery later today 10/18/17 routine post cares Ice to bottom times 24 hours sitz bath later today HGB in am support 24-48 hour stay 10/19/17 Routine cares Support Home in AM
--- NOTE | 2017-10-20 11:29 | PCM.PNPP ---
- General Info Date of Service: 10/20/17 Admission Dx/Problem (Free Text): Patient Status Order with Admit Dx/Problem 10/17/17 08:14 Patient Status [ADT] Routine Admission Diagnosis/Problem Admission Diagnosis/Problem - planned Functional Status: Reports: Pain Controlled - Review of Systems General: Reports: No Symptoms HEENT: Reports: No Symptoms Pulmonary: Reports: No Symptoms Cardiovascular: Reports: No Symptoms Gastrointestinal: Reports: No Symptoms Genitourinary: Reports: No Symptoms Musculoskeletal: Reports: No Symptoms Skin: Reports: No Symptoms Neurological: Reports: No Symptoms Psychiatric: Reports: No Symptoms - General Info Date of Service: 10/20/17 (PPD 2 D/C) - Patient Data Vital Signs - Most Recent: Last Vital Signs Temp 98.7 F 10/20/17 08:00 Pulse 83 10/20/17 08:00 Resp 16 10/20/17 08:00 BP 108/60 10/20/17 08:00 Pulse Ox 97 10/20/17 08:00 Weight - Most Recent: 246 lb Med Orders - Current: Current Medications Acetaminophen (Tylenol Bulk Bottle) 325 - 650 mg PO Q4H PRN PRN Reason: Pain Acetaminophen/Codeine Phosphate (Tylenol With Codeine No.3 300mg/30mg) 1 tab PO Q4H PRN PRN Reason: Pain (moderate 4-6) Benzocaine ([id number]-[id number]-Ohrqkbh 20% [place]) 0 gm TOP Q4H PRN PRN Reason: Perineal Comfort Measure Docusate Sodium (Colace) 100 mg PO BID [facility] Last Admin: 10/19/17 23:27 Dose: Not Given Emollient Ointment (Lansinoh Hpa) 1 gm TOP ASDIRECTED PRN PRN Reason: Sore Nipples Lactated Ringer's (Ringers, Lactated) 1,000 mls @ 100 mls/hr IV ASDIRECTED [facility] Last Admin: 10/17/17 18:20 Dose: 100 mls/hr Ibuprofen (Motrin Bulk Bottle) 600 mg PO Q6H PRN PRN Reason: Pain Methylergonovine Maleate (Methergine) 0.2 mg PO ONETIME PRN PRN Reason: excessive vaginal bleeding Naloxone HCl (Narcan) 0.1 mg IVPUSH Q5M PRN PRN Reason: IF RESP RATE LESS THAN 6 Ondansetron HCl (Zofran Odt) 4 mg PO Q4H PRN PRN Reason: Nausea/Vomiting Sodium Chloride (Saline Flush) 10 ml FLUSH ASDIRECTED PRN PRN Reason: Keep Vein Open Witch Arpita (Tucks) 1 pad TOP ASDIRECTED PRN PRN Reason: Hemorrhoids Discontinued Medications Acetaminophen (Tylenol) 650 mg PO Q4H PRN PRN Reason: Pain (Mild 1-3) and fever Acetaminophen (Tylenol Bulk Bottle) 325 - 650 mg PO Q4H PRN PRN Reason: Pain Carboprost Tromethamine (Hemabate Ds) Confirm Administered Dose 250 mcg .ROUTE .STK-MED ONE Stop: 10/18/17 01:27 Last Admin: 10/18/17 21:49 Dose: Not Given Ephedrine Sulfate (Ephedrine Sulfate) 5 mg IVPUSH ONETIME ONE Stop: 10/17/17 17:31 Last Admin: 10/17/17 19:37 Dose: Not Given Ephedrine Sulfate (Ephedrine Sulfate) 5 - 10 mg IV ASDIRECTED PRN PRN Reason: Systolic BP less than 100 Fentanyl (Sublimaze) 100 mcg IVPUSH Q1H PRN PRN Reason: Pain (moderate 4-6) Lactated Ringer's (Ringers, Lactated) 1,000 mls @ 999 mls/hr IV .BOLUS ONE Stop: 10/17/17 18:18 Last Admin: 10/17/17 17:20 Dose: 999 mls/hr Lactated Ringer's (Ringers, Lactated) 1,000 mls @ 999 mls/hr IV .BOLUS ONE Stop: 10/17/17 18:18 Last Admin: 10/17/17 19:30 Dose: Not Given Ropivacaine (Naropin 0.2%) Confirm Administered Dose 200 mls @ as directed .ROUTE .STK-MED ONE Stop: 10/17/17 18:54 Oxytocin/Sodium Chloride (Pitocin In Ns 20 Units/1,000 Ml) 20 unit in 1,000 mls @ 6 mls/hr IV TITRATE MEENU; Protocol Last Titration: 10/18/17 00:08 Dose: 5 munits/min, 15 mls/hr Ropivacaine (Naropin 0.2%) 100 mls @ 0 mls/hr EPIDUR ASDIRECTED MEENU; Protocol Last Admin: 10/17/17 18:30 Dose: 12 ml/hr, 12 mls/hr Lidocaine HCl (Xylocaine 1%) Confirm Administered Dose 50 ml .ROUTE .STK-MED ONE Stop: 10/17/17 23:26 Last Admin: 10/18/17 21:49 Dose: Not Given Methylergonovine Maleate (Methergine) Confirm Administered Dose 0.2 mg .ROUTE .STK-MED ONE Stop: 10/18/17 01:27 Last Admin: 10/18/17 21:49 Dose: Not Given Methylergonovine Maleate (Methergine) 0.2 mg IM NOW STA Stop: 10/18/17 01:27 Last Admin: 10/18/17 01:50 Dose: 0.2 mg Misoprostol (Cytotec) 50 mcg VAG ONETIME ONE Stop: 10/17/17 08:01 Last Admin: 10/17/17 08:01 Dose: 50 mcg Misoprostol (Cytotec) Confirm Administered Dose 50 mcg .ROUTE .STK-MED ONE Stop: 10/17/17 12:36 Last Admin: 10/17/17 13:57 Dose: Not Given Misoprostol (Cytotec) Confirm Administered Dose 50 mcg .ROUTE .STK-MED ONE Stop: 10/17/17 15:22 Last Admin: 10/17/17 15:34 Dose: 25 mcg Misoprostol (Cytotec) Confirm Administered Dose 800 mcg .ROUTE .STK-MED ONE Stop: 10/18/17 01:27 Last Admin: 10/18/17 21:49 Dose: Not Given - Interaction Disposition, : [place] in Room with Family Infant Interaction: Holding Infant Feeding: Breastfed Infant; Nursed Well Support Person: - Recovery Exam Fundal Tone: Firm Fundal Level: At Umbilicus Fundal Placement: Midline Lochia Amount: Small Lochia Color: Rubra/Red Perineum Description: Intact, Minimal Bruising/Swelling Episiotomy/Laceration: Approximated Bladder Status: Voiding Urinary Elimination: Voided Other Urinary Elimination, : due to void. - Exam General: Alert, Oriented HEENT: Pupils Equal Neck: Supple Lungs: Clear to Auscultation, Normal Respiratory Effort Cardiovascular: Regular Rate, Regular Rhythm GI/Abdominal Exam: Normal Bowel Sounds, Soft, Non-Tender, No Organomegaly, No Distention, No Abnormal Bruit, No Mass, Pelvis Stable Extremities: Normal Inspection, Normal Range of Motion, Non-Tender, No Pedal Edema, Normal Capillary Refill Skin: Warm, Dry, Intact Wound/Incisions: Healing Well Neurological: No New Focal Deficit Psy/Mental Status: Alert, Normal Affect, Normal Mood - Problem List & Annotations (1) SNOMED Code(s): 09181273 Code(s): Z34.90 - ENCNTR FOR SUPRVSN OF NORMAL , UNSP, UNSP TRIMESTER Status: Acute Current Visit: Yes Qualifiers: Weeks of gestation: 40 weeks Qualified Code(s): Z3A.40 - 40 weeks gestation of (2) Elective induction of labor planned SNOMED Code(s): 944772572 Code(s): CGL5715 - Status: Acute Current Visit: Yes (3) Vacuum extractor delivery, delivered SNOMED Code(s): 433284207 Code(s): O66.5 - ATTEMPTED APPLICATION OF VACUUM EXTRACTOR AND FORCEPS Status: Acute Current Visit: Yes (4) Shoulder dystocia during labor and delivery SNOMED Code(s): 57706327 Code(s): O66.0 - OBSTRUCTED LABOR DUE TO SHOULDER DYSTOCIA Status: Acute Current Visit: Yes (5) Vaginal tear resulting from childbirth SNOMED Code(s): 114726680 Code(s): O71.4 - OBSTETRIC HIGH VAGINAL LACERATION ALONE Status: Acute Current Visit: Yes (6) Vaginal delivery SNOMED Code(s): 302868936 Code(s): O80 - ENCOUNTER FOR FULL-TERM UNCOMPLICATED DELIVERY Status: Acute Current Visit: Yes (7) membranes, rupture SNOMED Code(s): 74251022 Code(s): VJB2032 - Status: Acute Current Visit: Yes - Problem List Review Problem List Initiated/Reviewed/Updated: Yes - Assessment Assessment:: 10/18/17 27 yr ols G2now P1 40 4/7 weeks with vacuum assist and shoulder dystoica, successful delivery vaginal and perineal tear repaired 10/19/17 Doing well Digital exam no hematomas, repair intact and without pain bleeding light breast, soft no milk yet Mood happy HGB 12.7 10/20/17 Doing well feeling well going better, latch has improved. - Plan Plan:: 10/17/17 g1 40 10/29 planned induction contractions times 2 days without major change Miso 50 mcg vaginally this morning reassess at noon, may repeat dose Plan for vaginal delivery later today 10/18/17 routine post cares Ice to bottom times 24 hours sitz bath later today HGB in am support 24-48 hour stay 10/19/17 Routine cares Support Home in AM 10/20/17 Home today See me in 6 weeks for a post visit
[2017-10-20] MEDS: Docusate Sodium 100 MG Cap PO SCH (11:32)
== END 2017-10-20 12:15 | disposition home or self-care (01) | DRG 560 ==
LOC: JP.OBCHECK 05:30 → JP.OB 07:24 → OBSVTOIN 10-18 01:18 → JP.MS 10-18 01:18
PROVIDERS: ADMIT Nurse Practitioner Family; ATTEND Nurse Practitioner Family
PROC: 10D07Z6 Extraction of Products of Conception, Vacuum, Via Natural or Artificial Opening (ICD-10-PCS; principal; 2017-10-18)
PROC: 3E033VJ Introduction of Other Hormone into Peripheral Vein, Percutaneous Approach (ICD-10-PCS; 2017-10-18)
PROC: 0KQM0ZZ Repair Perineum Muscle, Open Approach (ICD-10-PCS; 2017-10-18)
DX: O70.1 Second degree perineal laceration during delivery (principal); O75.81 Maternal exhaustion complicating labor and delivery; O66.5 Attempted application of vacuum extractor and forceps; O66.0 Obstructed labor due to shoulder dystocia; Z3A.40 40 weeks gestation of pregnancy; Z37.0 Single live birth
CPT/HCPCS: 36415; 51702; 80305; 81001; 84112; 85025; 99211; A9270-GY; J2210; J2590; J2795; J7120

== ENCOUNTER 2018-11-25 23:14 | Emergency (ER) | payer BC ==
--- NOTE | 2018-11-25 23:51 | EDM.PDOC ---
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 Very light cramping. No nausea or vomiting. 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: Neurological History: Reports: Migraines, Other (See Below) Other Neuro History: Hx of migraines none in a while Oncologic (Cancer) History: Reports: Cervix 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 - Infectious Disease History Infectious Disease History: Reports: Chicken Pox - Past Surgical History Female Surgical History: Reports: None Social & Family History - Family History Family Medical History: Noncontributory - Tobacco Use Smoking Status *Q: Never Smoker - Caffeine Use Caffeine Use: Reports: Coffee Caffeine Use Comment: 1 cup/day - Recreational Drug Use Recreational Drug Use: No ED ROS GENERAL - Review of Systems Review Of Systems: See Below Constitutional: Denies: Fever, Chills Respiratory: Reports: No Symptoms Cardiovascular: Reports: No Symptoms GI/Abdominal: Reports: Abdominal Pain (mild intermittent lower abdominal cramping) : Reports: No Symptoms Psychiatric: Reports: No Symptoms ED EXAM - Physical Exam Exam: See Below Exam Limited By: No Limitations General Appearance: Alert, Anxious Respiratory/Chest: No Respiratory Distress (Female) Exam: Other (vaginal exam was deferred) Neurological: Alert, Oriented Psychiatric: Anxious, Tearful Skin Exam: Warm, Dry Course - Vital Signs Last Recorded V/S: Last Vital Signs Temp 96.9 F 11/25/18 23:25 Pulse 87 11/25/18 23:25 Resp 18 11/25/18 23:25 BP 119/81 11/25/18 23:25 Pulse Ox 99 11/25/18 23:25 - Orders/Labs/Meds Labs: Laboratory Tests 11/25/18 11/25/18 Range/Units 23:53 23:53 WBC 10.1 (4.5-11.0) K/uL RBC 4.56 (3.30-5.50) M/uL Hgb 13.4 (12.0-15.0) g/dL Hct 38.9 (36.0-48.0) % MCV 85 (80-98) fL MCH 29 (27-31) pg MCHC 34 (32-36) % Plt Count 378 (150-400) K/uL Neut % (Auto) 62 (36-66) % Lymph % (Auto) 28 (24-44) % Bailey % (Auto) 8 H (2-6) % Eos % (Auto) 2 (2-4) % Baso % (Auto) 0 (0-1) % HCG, Quant 22568 H (0-6) mIU/mL - Re-Assessments/Exams Free Text/Narrative Re-Assessment/Exam: 11/25/18 23:48 Reviewed the ultrasound results from 6 days ago. CBC and quantitative beta hCG were drawn to be repeated on Tuesday unless she has significant spontaneous miscarriage symptoms. Otherwise she will discuss her symptoms with Jaki Balderrama on Tuesday. CBC was normal, beta hCG quantitative just over 14,000. She'll recheck on Tuesday with her OB provider. Departure - Departure Time of Disposition: 23:56 Disposition: Home, Self-Care 01 Clinical Impression: Threatened - Discharge Information Instructions: Threatened Miscarriage, [id number] Referrals: Jaki Balderrama CNM [Primary Care Provider] - Forms: ED Department Discharge Care Plan Goals: Recheck with Jaki Balderrama on Tuesday to discuss rechecking ultrasound or repeating labs. Rest until then, and return if worsening such as significant bleeding or pain.
== END 2018-11-25 23:56 | disposition home or self-care (01) ==
LOC: JP.ED 23:14
DX: O20.0 Threatened abortion (principal); Z3A.01 Less than 8 weeks gestation of pregnancy; Z88.1 Allergy status to other antibiotic agents; Z79.899 Other long term (current) drug therapy
CPT/HCPCS: 36415; 84702; 85025; 99283

== ENCOUNTER 2020-03-17 01:06 | Inpatient (IN) | payer BC ==
[2020-03-17] MEDS ORDERED: Misoprostol 50 MCG (1/2 of 100 MCG) Tab VAG ONE (07:00)
[2020-03-17] MEDS ORDERED: Sodium Chloride 0.9% 10 ML Syringe FLUSH PRN (07:42)
[2020-03-17] MEDS ORDERED: ePHEDrine 50 MG/ML SDV IVPUSH PRN (07:46)
[2020-03-17] MEDS ORDERED: Lactated Ringers 1,000 ML IV ONE (07:46)
--- NOTE | 2020-03-17 08:13 | PCM.LDHP ---
L&D History of Present Illness - General Date of Service: 03/17/20 Admit Problem/Dx: Patient Status Order with Admit Dx/Problem 03/17/20 07:42 Patient Status [ADT] Routine Admission Diagnosis/Problem Admission Diagnosis/Problem and not yet delivered Source of Information: Patient History Limitations: Reports: No Limitations - History of Present Illness Introduction:: 39 5/7 week gestation with a previous shoulder dystocia presents for induction of labor reactive NST, Cat one strip Labs: Covid neg GBS neg ABO O pos HIV neg Rubella immune - Related Data Allergies/Adverse Reactions: Allergies Allergy/AdvReac Type Severity Reaction Status Date / Time amoxicillin Allergy Rash Verified 11/25/18 23:24 cephalexin Allergy Rash Verified 11/25/18 23:24 Home Medications: Home Meds Pnv No.103/Folic/Om3s/Fish Oil [ Gummies] 1 tab DAILY 10/17/17 [History] Acetaminophen [Mapap] 650 mg PO QID PRN 11/25/18 [History] Past Medical History HEENT History: Reports: Allergic Rhinitis Cardiovascular History: Reports: None Respiratory History: Reports: None Gastrointestinal History: Reports: None Genitourinary History: Reports: None, STD Other Genitourinary History: HPV 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: , Spontaneous : 4 Para: 1 LMP (Approximate): (CHRISTELLE 03/19/20) Musculoskeletal History: Reports: None Neurological History: Reports: Migraines, Other (See Below) Other Neuro History: Hx of migraines none in a while Psychiatric History: Reports: None Endocrine/Metabolic History: Reports: None Oncologic (Cancer) History: Reports: Cervix 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 Dermatologic History: Reports: None - Infectious Disease History Infectious Disease History: Reports: None - Past Surgical History HEENT Surgical History: Reports: None Cardiovascular Surgical History: Reports: None Respiratory Surgical History: Reports: None GI Surgical History: Reports: None Female Surgical History: Reports: None Endocrine Surgical History: Reports: None Neurological Surgical History: Reports: None Musculoskeletal Surgical History: Reports: None Oncologic Surgical History: Reports: None Social & Family History - Family History Family Medical History: Noncontributory - Tobacco Use Smoking Status *Q: Former Smoker Used Tobacco, but Quit: Yes Month/Year Tobacco Last Used: 11/2009 - Caffeine Use Caffeine Use: Reports: Coffee Caffeine Use Comment: 1 cup/day - Recreational Drug Use Recreational Drug Use: No H&P Review of Systems - Review of Systems: Review Of Systems: See Below General: Reports: No Symptoms HEENT: Reports: No Symptoms Pulmonary: Reports: No Symptoms Cardiovascular: Reports: No Symptoms Gastrointestinal: Reports: No Symptoms Genitourinary: Reports: No Symptoms Musculoskeletal: Reports: No Symptoms Skin: Reports: No Symptoms Psychiatric: Reports: No Symptoms Neurological: Reports: No Symptoms Hematologic/Lymphatic: Reports: No Symptoms Immunologic: Reports: No Symptoms L&D Exam - Exam Exam: See Below - Vital Signs Weight: 242 lb 8.136 oz - OB Specific Movement: Active Heart Tones: Present Heart Tones per Min: 145 Heart Rate (FHR) Variability: Moderate (6-25 bmp) Presentation: Vertex - Lafleur Score Lafleur Score Cervix Position: Midposition Lafleur Score Consistency: Soft Lafleur Score Effacement: 51-70% Lafleur Score Dilation: 1-2 cm Lafleur Score 's Station: -2 Lafleur Score Total: 7 - Exam General: Alert, Oriented HEENT: PERRLA Neck: Supple Lungs: Clear to Auscultation, Normal Respiratory Effort Cardiovascular: Regular Rate, Regular Rhythm GI/Abdominal Exam: Soft Rectal Exam: Normal Exam Back Exam: Normal Inspection, Full Range of Motion Extremities: No Pedal Edema, Normal Capillary Refill Skin: Warm Neurological: Cranial Nerves Intact Psychiatric: Alert, Normal Affect, Normal Mood - Problem List (1) Prior shoulder dystocia at delivery in third trimester, antepartum SNOMED Code(s): 131084675, 151306122 ICD Code: O09.293 - SUPRVSN OF PREG W POOR REPRODCTV OR OBSTET HX, THIRD TRI Status: Acute Current Visit: Yes (2) SNOMED Code(s): 22642119 ICD Code: Z34.90 - ENCNTR FOR SUPRVSN OF NORMAL , UNSP, UNSP TRIMESTER Status: Acute Current Visit: Yes Qualifiers: Weeks of gestation: 39 weeks Qualified Code(s): Z3A.39 - 39 weeks gestation of (3) Encounter for planned induction of labor SNOMED Code(s): 837685030 ICD Code: Z34.90 - ENCNTR FOR SUPRVSN OF NORMAL , UNSP, UNSP TRIMESTER Status: Acute Current Visit: Yes Problem List Initiated/Reviewed/Updated: Yes Orders Last 24hrs: Active Orders 24 hr Category Date Time Status Patient Status [ADT] Routine ADT 03/17/20 07:42 Active Antiembolic Devices [RC] .Routine Care 03/17/20 07:44 Active Communication Order [RC] ASDIRECTED Care 03/17/20 07:42 Active Communication Order [RC] ASDIRECTED Care 03/17/20 07:46 Active Non Stress Test [RC] Click to Edit Care 03/17/20 07:42 Active Insert Urinary Catheter [OM.PC] ASDIRECTED Care 03/17/20 08:00 Ordered Local Anesthetic Infusion Pump [RC] ASDIRECTED Care 03/17/20 07:46 Active May Shower [RC] ASDIRECTED Care 03/17/20 07:42 Active Notify Provider Vital Signs [RC] PRN Care 03/17/20 07:42 Active Notify Provider [RC] PRN Care 03/17/20 07:42 Active PCEA Epidural [RC] ASDIRECTED Care 03/17/20 07:46 Active PCEA Epidural [RC] ASDIRECTED Care 03/17/20 07:46 Active Up ad Gina [RC] ASDIRECTED Care 03/17/20 07:42 Active Urinary Catheter Assessment [RC] ASDIRECTED Care 03/17/20 07:46 Active VTE/DVT Education [RC] Click to Edit Care 03/17/20 07:44 Active Vital Signs [RC] PER UNIT ROUTINE Care 03/17/20 07:42 Active Regular Diet [DIET] Diet 03/17/20 Dinner Active CBC W/O DIFF,HEMOGRAM [HEME] Routine Lab 03/17/20 07:42 Ordered UA W/MICROSCOPIC [URIN] Routine Lab 03/17/20 07:03 Received Lactated Ringers [Ringers, Lactated] 1,000 ml Med 03/17/20 07:46 Active IV .BOLUS Oxytocin/Normal Saline [Pitocin in NS 20 Units/1,000 ML Med 03/17/20 07:45 Active ] 20 unit in 1,000 ml IV ONETIME Sodium Chloride 0.9% [Saline Flush] Med 03/17/20 07:42 Active 10 ml FLUSH ASDIRECTED PRN ePHEDrine [ePHEDrine sulfate] Med 03/17/20 07:46 Active 10 mg IVPUSH ASDIRECTED PRN DVT/VTE Prophylaxis Reflex [OM.PC] Routine Oth 03/17/20 07:42 Ordered Epidural Catheter Management [OM.PC] Urgent Oth 03/17/20 07:46 Ordered Saline Lock Insert [OM.PC] Routine Oth 03/17/20 07:42 Ordered Resuscitation Status Routine Resus Stat 03/17/20 07:42 Ordered Medication Orders Ephedrine Sulfate (Ephedrine Sulfate) 10 mg IVPUSH ASDIRECTED PRN PRN Reason: Hypotension Oxytocin/Sodium Chloride (Pitocin In Ns 20 Units/1,000 Ml) 20 unit in 1,000 mls @ 999 mls/hr IV ONETIME ONE; Protocol Stop: 03/17/20 08:45 Lactated Ringer's (Ringers, Lactated) 1,000 mls @ 999 mls/hr IV .BOLUS ONE Stop: 03/17/20 08:46 Sodium Chloride (Saline Flush) 10 ml FLUSH ASDIRECTED PRN PRN Reason: Keep Vein Open Assessment/Plan Comment:: 03/17/20 39 5/7 week IUP induction for previous shoulder dystocia 50/-2 50 mcg Miso at 0800 Monitor for active labor will reassess at 1200
--- NOTE | 2020-03-17 12:13 | PCM.PNLD ---
Labor Progress Note - VS & Meds Vital Signs: Last Vital Signs Temp 97.3 F 03/17/20 07:31 Pulse 117 H 03/17/20 07:31 Resp 16 03/17/20 07:31 BP 121/65 03/17/20 07:31 Pulse Ox 95 03/17/20 07:31 Active Medications: Current Medications Ephedrine Sulfate (Ephedrine Sulfate) 10 mg IVPUSH ASDIRECTED PRN PRN Reason: Hypotension Misoprostol (Cytotec) 25 mcg PO ONETIME ONE Stop: 03/17/20 12:08 Sodium Chloride (Saline Flush) 10 ml FLUSH ASDIRECTED PRN PRN Reason: Keep Vein Open Discontinued Medications Oxytocin/Sodium Chloride (Pitocin In Ns 20 Units/1,000 Ml) 20 unit in 1,000 mls @ 999 mls/hr IV ONETIME ONE; Protocol Stop: 03/17/20 08:45 Lactated Ringer's (Ringers, Lactated) 1,000 mls @ 999 mls/hr IV .BOLUS ONE Stop: 03/17/20 08:46 Misoprostol (Cytotec) 50 mcg VAG ONETIME ONE Stop: 03/17/20 07:01 Last Admin: 03/17/20 07:57 Dose: 50 mcg Documented by: - Uterine Contractions Uterine Monitoring Mode: External [place] Contraction Frequency (min): 4-4.5 Contraction Duration (sec): 60-80 Contraction Intensity: Mild Uterine Resting Tone: Soft - Monitoring Monitor Mode: External Ultrasound Heart Rate (FHR) Variability: Moderate (6-25 bmp) Accelerations: Present, 15x15 Decelerations: None Strip Review: Category I - Vaginal Exam Dilation (cm): 1 Effacement (Percent): 75 Station: -1 Cervical Position: Midposition Sterile Vaginal Exam Performed By: Jaki Balderrama Vaginal Exam Comment: nice change since this morning, membranes stripped and second dose Miso placed 25 mcg - Labor Progress (Free Text) Labor Progress: 03/17/20 Doing well chiara early labor. Plan Pain medication per patient request Monitor for active labor and or SROM Anticipate vaginal delivery
[2020-03-17] MEDS ORDERED: Misoprostol 25 MCG (1/4 of 100 MCG) Tab PO ONE (12:30)
[2020-03-17] MEDS ORDERED: fentaNYL 100 MCG/2 ML SDV IVPUSH ONE (16:02)
[2020-03-17] MEDS ORDERED: Lactated Ringers 1,000 ML IV SCH (16:45)
[2020-03-17] MEDS ORDERED: Ropivacaine 100 ML ONE (16:49)
--- NOTE | 2020-03-17 17:03 | PCM.PNLD ---
Labor Progress Note - VS & Meds Vital Signs: Last Vital Signs Temp 98.3 F 03/17/20 14:46 Pulse 64 03/17/20 14:46 Resp 16 03/17/20 14:46 BP 129/65 03/17/20 14:46 Pulse Ox 99 03/17/20 14:46 Active Medications: Current Medications Ephedrine Sulfate (Ephedrine Sulfate) 10 mg IVPUSH ASDIRECTED PRN PRN Reason: Hypotension Lactated Ringer's (Ringers, Lactated) 1,000 mls @ 125 mls/hr IV ASDIRECTED MEENU Sodium Chloride (Saline Flush) 10 ml FLUSH ASDIRECTED PRN PRN Reason: Keep Vein Open Discontinued Medications Fentanyl (Sublimaze) 50 mcg IVPUSH ONETIME ONE Stop: 03/17/20 16:03 Last Admin: 03/17/20 16:11 Dose: 50 mcg Documented by: Oxytocin/Sodium Chloride (Pitocin In Ns 20 Units/1,000 Ml) 20 unit in 1,000 mls @ 999 mls/hr IV ONETIME ONE; Protocol Stop: 03/17/20 08:45 Lactated Ringer's (Ringers, Lactated) 1,000 mls @ 999 mls/hr IV .BOLUS ONE Stop: 03/17/20 08:46 Last Admin: 03/17/20 15:52 Dose: 999 mls/hr Documented by: Ropivacaine (Naropin 0.2%) Confirm Administered Dose 100 mls @ as directed .ROUTE .STK-MED ONE Stop: 03/17/20 16:50 Misoprostol (Cytotec) 50 mcg VAG ONETIME ONE Stop: 03/17/20 07:01 Last Admin: 03/17/20 07:57 Dose: 50 mcg Documented by: Misoprostol (Cytotec) 25 mcg PO ONETIME ONE Stop: 03/17/20 12:31 Last Admin: 03/17/20 12:15 Dose: 25 mcg Documented by: - Uterine Contractions Uterine Monitoring Mode: External [place] Contraction Frequency (min): 1.5-2 Contraction Duration (sec): 50-70 Contraction Intensity: Moderate to Strong Uterine Resting Tone: Soft - Monitoring Monitor Mode: External Ultrasound Heart Rate (FHR) Variability: Moderate (6-25 bmp) Accelerations: Present, 15x15 Decelerations: None Strip Review: Category I - Vaginal Exam Dilation (cm): 5 Effacement (Percent): 75 Station: 0 Cervical Position: Anterior Sterile Vaginal Exam Performed By: Jaki Balderrama Vaginal Exam Comment: Head well applied. SROM clear fluid - Labor Progress (Free Text) Labor Progress: epidural inserted, pain improving contractions every 2 minutes Cat one strip Will use peanut ball for position changes
--- NOTE | 2020-03-17 18:13 | ANES ---
DATE OF SERVICE: 03/17/2020 INDICATIONS: I was called this afternoon by the OB Department for a young lady requesting a labor epidural, who was in for an induction today. I was at the bedside at approximately 1615. A brief history and physical was done with the patient. The patient stated that she has had a normal . No abnormal bleeding issues and is not currently on any blood thinners. Risks and benefits were discussed with the patient including risk for infection and risk for spinal headache. The patient verbalizes understandings of the risks and wishes to proceed with the labor epidural at this time. Platelet count was also noted to be 318. TECHNIQUE: The patient was then sat at the edge of the bed. Betadine prep x3 to the lumbar region was done. Sterile drape was placed. 1% lidocaine skin wheal and deep was done. A 17-gauge Tuohy needle was inserted at approximately the L3-4 position. Loss of resistance was easily achieved at approximately 7 cm. Negative paresthesia, negative heme, and negative CSF were noted at that time. Epidural catheter was easily threaded through Touhy needle. The Tuohy needle was withdrawn. Catheter was pulled back to approximately 15 cm and secured at 15 cm. 5 mL test dose was done. The patient was then laid in the supine position with left uterine displacement. After several minutes after the test dose, the patient was showing no signs of intravascular injection of local anesthetic, nor subarachnoid block. I then proceeded to give the patient 12 mL of 0.2% ropivacaine bolus via the epidural and started her on a 0.2% ropivacaine drip at 12 mL an hour. The patient tolerated the bolus without difficulty, tolerated the entire procedure without difficulty. Please refer to the nurse's notes for vital signs. The patient was starting to feel some relief related to the epidural, and her blood pressure was stable like I said. We will be available as needed for the patient. Stanford Alejo CRNA /[id number]
[2020-03-17] MEDS ORDERED: Acetaminophen 325 MG Tab, 50 Tab Bulk Bottle PO PRN (19:45)
[2020-03-17] MEDS ORDERED: Benzocaine 20% Top Spray 56 GM Bottle TOP ONE (19:45)
[2020-03-17] MEDS ORDERED: Witch Hazel Medicated Pads 100/Jar TOP ONE (19:45)
[2020-03-17] MEDS ORDERED: Hydrocortisone 2.5% Crm 30 GM Tube TOP PRN (19:45)
[2020-03-17] MEDS ORDERED: Ibuprofen 200 MG Tab, 24 Tab Bulk Bottle PO PRN (19:45)
[2020-03-17] MEDS ORDERED: Lanolin 100% Cream 40 GM Tube TOP ONE (19:45)
--- NOTE | 2020-03-17 20:05 | PCM.DEL ---
L & D Note - General Info Date of Service: 03/17/20 () Mother's Due Date: 03/19/20 - Delivery Note Labor: Spontaneous Cervical Ripening Method: Misoprostil Delivery Outcome: Livebirth Infant Delivery Method: Spontaneous Vaginal Delivery-Single Delivery Mode: Spontaneous Presentation: Vertex Nuchal Cord: Present Anesthesia Type: Epidural Amniotic Fluid Description: Clear Episiotomy Type: None Laceration: 1st Degree, Labial, Perineal Suture type: Vicryl Suture size: 3-0 Placenta: Intact, Spontaneous Cord: 3 Vessels Estimated Blood Loss: 200 Resuscitation Needed: No : Bulb Syringe, Stimulated, Warmed, [place] Used Provider: Jaki Balderrama Score 1 min: 9 (color) Score 5 min: 10 Second Stage Interventions: Reports: Second Nurse Reviewed Heart Tones, Pushing Effectively, Pushing, Knee Chest Position Delivery Comments (Free Text/Narrative):: 03/17/20 This 29 year old G4 now P2 who is 39 5/7 weeks delivered via at 1919 in [place] position a viable female . The had a nuchal cord which she was somersaulted through. Babe was placed on mother's chest where she was dried and stimulated and cried spontaneously. Apgars of 9 & 10. Three vessel cord. The placenta was expressed spontaneously intact. A first degree teat from the perineum up into the right labia was repaired with 3-0 vicryl with a running suture. No other lacerations of the vagina, rectum or cervix were found. EBL 200 cc Mother and baby to post in stable condition. Active management of the third stage, delayed cord clamping and skin to skin were done. First stage 0440-9571 second stage 1351-9888 Third stage 4349-6994 weight 7 pounds Induction Criteria - Lafleur Score Lafleur Score Dilation: 1-2 cm Lafleur Score Effacement: 40-50% Lafleur Score 's Station: -1 ,0 Lafleur Score Consistency: Soft Lafleur Score Cervix Position: Midposition Lafleur Score Total: 7 Lafleur Score Presenting Part: Reports: Cephalic - Induction Gestational Age >/= 39 wks: Yes Estimated Pelvis: Reports: Adequate Reassuring Monitoring Strip: Yes Absence of Tachy Systole: Yes - General Info Date of Service: 03/17/20 Admission Dx/Problem (Free Text): Patient Status Order with Admit Dx/Problem 03/17/20 07:42 Patient Status [ADT] Routine Admission Diagnosis/Problem Admission Diagnosis/Problem and not yet delivered Functional Status: Reports: Pain Controlled - Review of Systems General: Reports: No Symptoms HEENT: Reports: No Symptoms Pulmonary: Reports: No Symptoms Cardiovascular: Reports: No Symptoms Gastrointestinal: Reports: No Symptoms Genitourinary: Reports: No Symptoms Musculoskeletal: Reports: No Symptoms Skin: Reports: No Symptoms Neurological: Reports: No Symptoms Psychiatric: Reports: No Symptoms - Patient Data Vitals - Most Recent: Last Vital Signs Temp 97.4 F 03/17/20 16:35 Pulse 67 03/17/20 17:22 Resp 16 03/17/20 17:22 BP 117/55 L 03/17/20 17:22 Pulse Ox 98 03/17/20 17:22 Weight - Most Recent: 242 lb 8.136 oz I&O - Last 24 Hours: Intake & Output 03/17/20 03/17/20 03/17/20 06:59 14:59 22:59 Intake Total 800 1000 Balance 800 1000 Lab Results Last 24 Hours: Laboratory Results - last 24 hr 03/17/20 03/17/20 03/17/20 Range/Units 07:03 08:00 12:23 WBC 14.3 H (4.5-11.0) K/uL RBC 4.57 (3.30-5.50) M/uL Hgb 12.8 (12.0-15.0) g/dL Hct 39.7 (36.0-48.0) % MCV 87 (80-98) fL MCH 28 (27-31) pg MCHC 32 (32-36) % Plt Count 318 (150-400) K/uL Urine Color Yellow (YELLOW) Urine Appearance Cloudy A (CLEAR) Urine pH 7.0 (5.0-8.0) Ur Specific [place] 1.025 (1.008-1.030) Urine Protein Negative (NEGATIVE) mg/dL Urine Glucose (UA) Negative (NEGATIVE) mg/dL Urine Ketones Negative (NEGATIVE) mg/dL Urine Occult Blood Moderate (NEGATIVE) Urine Nitrite Negative (NEGATIVE) Urine Bilirubin Negative (NEGATIVE) Urine Urobilinogen 0.2 (0.2-1.0) EU/dL Ur Leukocyte Esterase Small (NEGATIVE) Urine RBC 10-20 H (0-5) Urine WBC 0-5 (0-5) Ur Epithelial Cells Many Amorphous Sediment Numerous Urine Bacteria Moderate Urine Mucus Rare Urine Opiates Screen Negative (NEGATIVE) Ur Oxycodone Screen Negative (NEGATIVE) Urine Methadone Screen Negative (NEGATIVE) Ur Propoxyphene Screen Negative (NEGATIVE) Ur Barbiturates Screen Negative (NEGATIVE) Ur Tricyclics Screen Negative (NEGATIVE) Ur Phencyclidine Scrn Negative (NEGATIVE) Ur Amphetamine Screen Negative (NEGATIVE) U Methamphetamines Scrn Negative (NEGATIVE) Urine MDMA Screen Negative (NEGATIVE) U Benzodiazepines Scrn Negative (NEGATIVE) U Cocaine Metab Screen Negative (NEGATIVE) U Marijuana (THC) Screen Negative (NEGATIVE) Med Orders - Current: Current Medications Ephedrine Sulfate (Ephedrine Sulfate) 10 mg IVPUSH ASDIRECTED PRN PRN Reason: Hypotension Lactated Ringer's (Ringers, Lactated) 1,000 mls @ 125 mls/hr IV ASDIRECTED MEENU Last Admin: 03/17/20 17:35 Dose: 125 mls/hr Documented by: Sodium Chloride (Saline Flush) 10 ml FLUSH ASDIRECTED PRN PRN Reason: Keep Vein Open Discontinued Medications Fentanyl (Sublimaze) 50 mcg IVPUSH ONETIME ONE Stop: 03/17/20 16:03 Last Admin: 03/17/20 16:11 Dose: 50 mcg Documented by: Oxytocin/Sodium Chloride (Pitocin In Ns 20 Units/1,000 Ml) 20 unit in 1,000 mls @ 999 mls/hr IV ONETIME ONE; Protocol Stop: 03/17/20 08:45 Lactated Ringer's (Ringers, Lactated) 1,000 mls @ 999 mls/hr IV .BOLUS ONE Stop: 03/17/20 08:46 Last Admin: 03/17/20 15:52 Dose: 999 mls/hr Documented by: Ropivacaine (Naropin 0.2%) Confirm Administered Dose 100 mls @ as directed .ROUTE .STK-MED ONE Stop: 03/17/20 16:50 Misoprostol (Cytotec) 50 mcg VAG ONETIME ONE Stop: 03/17/20 07:01 Last Admin: 03/17/20 07:57 Dose: 50 mcg Documented by: Misoprostol (Cytotec) 25 mcg PO ONETIME ONE Stop: 03/17/20 12:31 Last Admin: 03/17/20 12:15 Dose: 25 mcg Documented by: - Exam General: Alert, Oriented HEENT: Pupils Equal Neck: Supple Lungs: Normal Respiratory Effort Cardiovascular: Regular Rate, Regular Rhythm GI/Abdominal Exam: Normal Bowel Sounds, Soft (Female) Exam: Cervical Dilatation, Enlarged Uterus, Vaginal Bleeding Back Exam: Normal Inspection, Full Range of Motion Extremities: No Pedal Edema, Normal Capillary Refill Wound/Incisions: Healing Well Neurological: No New Focal Deficit Psy/Mental Status: Alert, Normal Affect - Problem List & Annotations (1) Prior shoulder dystocia at delivery in third trimester, antepartum SNOMED Code(s): 061298343, 094676304 Code(s): O09.293 - SUPRVSN OF PREG W POOR REPRODCTV OR OBSTET HX, THIRD TRI Status: Acute Current Visit: Yes (2) SNOMED Code(s): 07429959 Code(s): Z34.90 - ENCNTR FOR SUPRVSN OF NORMAL , UNSP, UNSP TRIMESTER Status: Acute Current Visit: Yes Qualifiers: Weeks of gestation: 39 weeks Qualified Code(s): Z3A.39 - 39 weeks gestation of (3) Encounter for planned induction of labor SNOMED Code(s): 664804445 Code(s): Z34.90 - ENCNTR FOR SUPRVSN OF NORMAL , UNSP, UNSP TRIMESTER Status: Acute Current Visit: Yes (4) Vaginal delivery SNOMED Code(s): 908777259 Code(s): O80 - ENCOUNTER FOR FULL-TERM UNCOMPLICATED DELIVERY Status: Acute Current Visit: Yes (5) Active labor SNOMED Code(s): 220357798 Code(s): XST4454 - Status: Acute Current Visit: Yes - Problem List Review Problem List Initiated/Reviewed/Updated: Yes - My Orders Last 24 Hours: My Active Orders 03/17/20 07:42 Communication Order [RC] ASDIRECTED May Shower [RC] ASDIRECTED Notify Provider Vital Signs [RC] PRN Notify Provider [RC] PRN Up ad Gina [RC] ASDIRECTED Vital Signs [RC] Q4H Sodium Chloride 0.9% [Saline Flush] 10 ml FLUSH ASDIRECTED PRN DVT/VTE Prophylaxis Reflex [OM.PC] Routine Saline Lock Insert [OM.PC] Routine Resuscitation Status Routine 03/17/20 07:44 Antiembolic Devices [RC] .Routine VTE/DVT Education [RC] Click to Edit 03/17/20 07:46 Local Anesthetic Infusion Pump [RC] ASDIRECTED PCEA Epidural [RC] ASDIRECTED Urinary Catheter Assessment [RC] ASDIRECTED ePHEDrine [ePHEDrine sulfate] 10 mg IVPUSH ASDIRECTED PRN Epidural Catheter Management [OM.PC] Urgent 03/17/20 08:00 Insert Urinary Catheter [OM.PC] ASDIRECTED 03/17/20 15:48 OB Ltd 1 or More Fetus [US] Routine 03/17/20 16:45 Lactated Ringers [Ringers, Lactated] 1,000 ml IV ASDIRECTED 03/17/20 Dinner Regular Diet [DIET] 03/17/20 19:45 Patient Status [ADT] Routine Vital Signs [RC] PFP Acetaminophen [Tylenol Bulk Bottle] See Dose Instructions PO Q4H PRN Benzocaine [Cuih-V-Yjhbxgj 20% [place]] See Dose Instructions TOP Q4H ONE Hydrocortisone [Proctozone-HC 2.5% Crm] 1 gm TOP ASDIRECTED PRN Ibuprofen [Motrin Bulk Bottle] 600 mg PO Q6H PRN Lanolin [Lansinoh HPA] 1 gm TOP ASDIRECTED ONE witch Gracie [Tucks] 1 pad TOP ASDIRECTED ONE Ice Therapy [OM.PC] Per Unit Routine Perineal Care [OM.PC] Per Unit Routine Sitz Bath [OM.PC] Per Unit Routine - Assessment Assessment:: 03/17/20 30 39 5/7 week IUP without complications first degree laceration with repair female infant - Plan Plan:: 03/17/20 39 5/7 week IUP induction for previous shoulder dystocia 1/50/-2 50 mcg Miso at 0800 Monitor for active labor will reassess at 1200 03/17/20 Routine cares 24-48 hour stay
[2020-03-18] MEDS ORDERED: Benzocaine 20% Top Spray 56 GM Bottle TOP PRN (07:07)
[2020-03-18] MEDS ORDERED: Witch Hazel Medicated Pads 100/Jar TOP PRN (07:10)
[2020-03-18] MEDS ORDERED: Lanolin 100% Cream 40 GM Tube TOP PRN (07:11)
--- NOTE | 2020-03-18 09:12 | US ---
OB Ltd 1 or More Fetus CLINICAL HISTORY: Check position, pending induction FINDINGS: There is a single viable intrauterine in cephalic position. heart rate is 128 bpm. There is spontaneous motion Placenta is anterior fundal. Amniotic fluid index is 15.1 : IMPRESSION: Single viable intrauterine in cephalic position
--- NOTE | 2020-03-18 13:23 | PCM.PNPP ---
- General Info Date of Service: 03/18/20 (PPD 1 D/C) Admission Dx/Problem (Free Text): Patient Status Order with Admit Dx/Problem 03/17/20 07:42 Patient Status [ADT] Routine Admission Diagnosis/Problem Admission Diagnosis/Problem and not yet delivered Functional Status: Reports: Pain Controlled - Review of Systems General: Reports: No Symptoms HEENT: Reports: No Symptoms Pulmonary: Reports: No Symptoms Cardiovascular: Reports: No Symptoms Gastrointestinal: Reports: No Symptoms Genitourinary: Reports: No Symptoms Musculoskeletal: Reports: No Symptoms Skin: Reports: No Symptoms Neurological: Reports: No Symptoms Psychiatric: Reports: No Symptoms - General Info Date of Service: 03/18/20 - Patient Data Vital Signs - Most Recent: Last Vital Signs Temp 97.8 F 03/18/20 08:30 Pulse 79 03/18/20 08:30 Resp 14 03/18/20 08:30 BP 113/67 03/18/20 08:30 Pulse Ox 99 03/18/20 08:30 Weight - Most Recent: 242 lb I&O - Last 24 Hours: Intake & Output 03/17/20 03/18/20 03/18/20 22:59 06:59 14:59 Intake Total 1000 Output Total 300 Balance 700 Lab Results - Last 24 Hours: Laboratory Results - last 24 hr 03/18/20 Range/Units 08:16 WBC 16.3 H (4.5-11.0) K/uL RBC 4.58 (3.30-5.50) M/uL Hgb 13.4 (12.0-15.0) g/dL Hct 39.9 (36.0-48.0) % MCV 87 (80-98) fL MCH 29 (27-31) pg MCHC 34 (32-36) % Plt Count 289 (150-400) K/uL Med Orders - Current: Current Medications Acetaminophen (Tylenol Bulk Bottle) 0 mg PO Q4H PRN PRN Reason: Pain Last Admin: 03/17/20 21:16 Dose: 1 bottle Documented by: Benzocaine (Yakf-O-Pdgkioi 20% [place]) 0 gm TOP Q4H PRN PRN Reason: PERINEAL PAIN Emollient Ointment (Lansinoh Hpa) 1 gm TOP ASDIRECTED PRN PRN Reason: AFTER Hydrocortisone (Proctozone-Hc 2.5% Crm) 1 gm TOP ASDIRECTED PRN PRN Reason: Itching Lactated Ringer's (Ringers, Lactated) 1,000 mls @ 125 mls/hr IV ASDIRECTED MEENU Last Admin: 03/17/20 17:35 Dose: 125 mls/hr Documented by: Ibuprofen (Motrin Bulk Bottle) 600 mg PO Q6H PRN PRN Reason: Pain Last Admin: 03/17/20 21:17 Dose: 1 bottle Documented by: Sodium Chloride (Saline Flush) 10 ml FLUSH ASDIRECTED PRN PRN Reason: Keep Vein Open [place]ie Palm (Tucks) 1 pad TOP ASDIRECTED PRN PRN Reason: PERINEUM PAIN Discontinued Medications Benzocaine (Jued-O-Eorlzbk 20% [place]) 0 gm TOP Q4H ONE Stop: 03/17/20 19:46 Last Admin: 03/17/20 21:15 Dose: 1 bottle Documented by: Emollient Ointment (Lansinoh Hpa) 1 gm TOP ASDIRECTED ONE Stop: 03/17/20 19:46 Last Admin: 03/17/20 21:16 Dose: 1 bottle Documented by: Ephedrine Sulfate (Ephedrine Sulfate) 10 mg IVPUSH ASDIRECTED PRN PRN Reason: Hypotension Fentanyl (Sublimaze) 50 mcg IVPUSH ONETIME ONE Stop: 03/17/20 16:03 Last Admin: 03/17/20 16:11 Dose: 50 mcg Documented by: Oxytocin/Sodium Chloride (Pitocin In Ns 20 Units/1,000 Ml) 20 unit in 1,000 mls @ 999 mls/hr IV ONETIME ONE; Protocol Stop: 03/17/20 08:45 Last Admin: 03/17/20 21:18 Dose: 999 mls/hr, 999 mls/hr Documented by: Lactated Ringer's (Ringers, Lactated) 1,000 mls @ 999 mls/hr IV .BOLUS ONE Stop: 03/17/20 08:46 Last Admin: 03/17/20 15:52 Dose: 999 mls/hr Documented by: Ropivacaine (Naropin 0.2%) Confirm Administered Dose 100 mls @ as directed .ROUTE .STK-MED ONE Stop: 03/17/20 16:50 Misoprostol (Cytotec) 50 mcg VAG ONETIME ONE Stop: 03/17/20 07:01 Last Admin: 03/17/20 07:57 Dose: 50 mcg Documented by: Misoprostol (Cytotec) 25 mcg PO ONETIME ONE Stop: 03/17/20 12:31 Last Admin: 03/17/20 12:15 Dose: 25 mcg Documented by: Debra Palm (Tucks) 1 pad TOP ASDIRECTED ONE Stop: 03/17/20 19:46 Last Admin: 03/17/20 21:15 Dose: 1 bottle Documented by: - Interaction Disposition, : [place] in Room with Family Interaction: Holding Feeding: Breastfed Infant; Nursed Well Support Person: - Recovery Exam Fundal Tone: Firm Fundal Level: At Umbilicus Fundal Placement: Midline Lochia Amount: Moderate Lochia Color: Rubra/Red Perineum Description: Edematous, Hemorrhoids Episiotomy/Laceration: Approximated Bladder Status: Voiding Urinary Elimination: Voided Other Urinary Elimination, : hernandez removed, DTV - Exam General: Alert, Oriented HEENT: Pupils Equal Neck: Supple Lungs: Normal Respiratory Effort Cardiovascular: Regular Rate, Regular Rhythm GI/Abdominal Exam: Soft, Non-Tender Extremities: No Pedal Edema, Normal Capillary Refill Skin: Warm, Dry, Intact Wound/Incisions: Healing Well Neurological: No New Focal Deficit Psy/Mental Status: Alert, Normal Affect, Normal Mood - Problem List & Annotations (1) Prior shoulder dystocia at delivery in third trimester, antepartum SNOMED Code(s): 090943400, 342041708 Code(s): O09.293 - SUPRVSN OF PREG W POOR REPRODCTV OR OBSTET HX, THIRD TRI Status: Acute Current Visit: Yes (2) SNOMED Code(s): 31587643 Code(s): Z34.90 - ENCNTR FOR SUPRVSN OF NORMAL , UNSP, UNSP TRIMESTER Status: Acute Current Visit: Yes Qualifiers: Weeks of gestation: 39 weeks Qualified Code(s): Z3A.39 - 39 weeks gestation of (3) Encounter for planned induction of labor SNOMED Code(s): 596344601 Code(s): Z34.90 - ENCNTR FOR SUPRVSN OF NORMAL , UNSP, UNSP TRIMESTER Status: Acute Current Visit: Yes (4) Vaginal delivery SNOMED Code(s): 462520715 Code(s): O80 - ENCOUNTER FOR FULL-TERM UNCOMPLICATED DELIVERY Status: Acute Current Visit: Yes (5) Active labor SNOMED Code(s): 297327299 Code(s): PDX4299 - Status: Acute Current Visit: Yes - Problem List Review Problem List Initiated/Reviewed/Updated: Yes - My Orders Last 24 Hours: My Active Orders 03/17/20 16:45 Lactated Ringers [Ringers, Lactated] 1,000 ml IV ASDIRECTED 03/17/20 Dinner Regular Diet [DIET] 03/17/20 19:45 Patient Status [ADT] Routine Acetaminophen [Tylenol Bulk Bottle] See Dose Instructions PO Q4H PRN Hydrocortisone [Proctozone-HC 2.5% Crm] 1 gm TOP ASDIRECTED PRN Ibuprofen [Motrin Bulk Bottle] 600 mg PO Q6H PRN Ice Therapy [OM.PC] Per Unit Routine Perineal Care [OM.PC] Per Unit Routine Sitz Bath [OM.PC] Per Unit Routine 03/18/20 07:07 Benzocaine [Gdqi-Z-Ubswdvt 20% [place]] 0 gm TOP Q4H PRN 03/18/20 07:10 witch Gracie [Tucks] 1 pad TOP ASDIRECTED PRN 03/18/20 07:11 Lanolin [Lansinoh HPA] 1 gm TOP ASDIRECTED PRN - Assessment Assessment:: 03/17/20 30 39 5/7 week IUP without complications first degree laceration with repair female infant 03/18/20 Doing well today Happy and no signs of depression, Breasts ok nursing nursing well 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 No pain with repair wants to go home HGB 13.4 - Plan Plan:: 03/17/20 39 5/7 week IUP induction for previous shoulder dystocia 50/-2 50 mcg Miso at 0800 Monitor for active labor will reassess at 1200 03/17/20 Routine cares 24-48 hour stay 03/17/20 Home later today see me in 6 weeks for a post visit.
== END 2020-03-18 19:50 | disposition home or self-care (01) | DRG 560 ==
LOC: JP.OB 07:04 → OBSVTOIN 19:19 → JP.MS 19:38
PROVIDERS: ADMIT Nurse Practitioner Family; ATTEND Nurse Practitioner Family
PROC: 10E0XZZ Delivery of Products of Conception, External Approach (ICD-10-PCS; principal; 2020-03-17)
PROC: 3E0P7VZ Introduction of Hormone into Female Reproductive, Via Natural or Artificial Opening (ICD-10-PCS; 2020-03-17)
PROC: 0HQ9XZZ Repair Perineum Skin, External Approach (ICD-10-PCS; 2020-03-17)
PROC: 3E0R3BZ Introduction of Anesthetic Agent into Spinal Canal, Percutaneous Approach (ICD-10-PCS; 2020-03-17)
PROC: 00HU33Z Insertion of Infusion Device into Spinal Canal, Percutaneous Approach (ICD-10-PCS; 2020-03-17)
DX: O69.81X0 Labor and delivery complicated by cord around neck, without compression, not applicable or unspecified (principal); Z3A.39 39 weeks gestation of pregnancy; Z37.0 Single live birth; O70.0 First degree perineal laceration during delivery
CPT/HCPCS: 36415; 51702; 59409; 76815; 76815-26; 80305-QW; 81001; 85027; A9270-GY; J2590; J2795; J3010; J7120

== ENCOUNTER 2024-03-06 08:04 | Day surgery (SDC) | payer BC ==
[2024-03-06] MEDS: Sodium Chloride 0.9% 1,000 ML IV SCH (08:27)
[2024-03-06] MEDS ORDERED: fentaNYL 50 MCG/ML SDV ONE (09:24)
[2024-03-06] MEDS ORDERED: Propofol 200 MG/20 ML SDV ONE ×2 (09:24→09:33)
[2024-03-06] MEDS ORDERED: Midazolam 1 MG/ML 2 ML SDV ONE (09:24)
== END 2024-03-06 10:56 | disposition home or self-care (01) ==
LOC: JP.SDS 08:04
PROVIDERS: ATTEND Surgery
DX: K58.9 Irritable bowel syndrome, unspecified (principal); Z87.891 Personal history of nicotine dependence
CPT/HCPCS: 45380; 81025; 88305; J2250; J2704; J3010; J7030